=== PATIENT | female | born 1950 | race Caucasian/White ===

== ENCOUNTER 2020-11-18 21:56 | Inpatient (IN) ==
[2020-11-19] MEDS ORDERED: Naloxone 0.4 MG/ML INJ IVP PRN (01:08)
[2020-11-19] MEDS ORDERED: Phentolamine Mesylate 5 MG VIAL IJ ONE (01:11)
[2020-11-19] MEDS ORDERED: *HR* Dextrose 50 % in Water (Vial) 50 ML VIAL IVP PRN (01:30)
[2020-11-19] MEDS ORDERED: D5% in Water 1,000 ML IVC PRN (01:30)
[2020-11-19] MEDS ORDERED: Dextrose Gel 15 GM/37.5 ML TUBE PO PRN ×2 (01:30)
[2020-11-19] MEDS ORDERED: 0.9 % Sodium Chloride 500 ML ONE ×2 (01:43→01:56)
[2020-11-19] MEDS ORDERED: Vancomycin 1,750 MG/517.5 ML IV.SOLN IVPB ONE (02:00)
[2020-11-19 02:22] LABS: Basophils % 0.2 %; Eosinophils % 0.2 %; Hematocrit 25.9 % (35.3-44.9); Hemoglobin 7.8 g/dL (11.5-15.4); Immature Granulocytes % 0.9 % (0-4); Lymphocytes # 1.1 K/mcL (0.6-4.6); Lymphocytes % 9.9 %; Mean Corpuscular HGB Conc 30.1 g/dL (31.6-35.5); Mean Corpuscular Volume 106.1 fL (83.0-100.0); Mean Platelet Volume 9.7 fL (9.4-12.4); Monocytes # 0.6 K/mcL (0.0-1.3); Monocytes % 5.5 %; Neutrophils # 9.4 K/mcL (1.6-8.9); Nucleated Red Blood Cells 0.2 /100 WBC (0); Platelet Count 279 K/mcL (140-400); Red Blood Count 2.44 M/mcL (3.82-4.97); Red Cell Distribution Width 20.2 % (11.5-14.5); Segmented Neutrophils % 83.3 %; White Blood Count 11.3 K/mcL (4.3-11.1)
[2020-11-19] MEDS ORDERED: Norepinephrine 4 MG/254 ML IV.SOLN IVC SCH (02:30)
[2020-11-19 02:39] LABS: Albumin/Globulin Ratio 0.9 (1.1-2.2); Bilirubin,Total 0.4 mg/dL (0.3-1.0); Calcium 10.3 mg/dL (8.6-10.3); Globulin 3.5 g/dL (2.4-3.5); Magnesium 2.4 mg/dL (1.6-2.6); Potassium 3.8 mEq/L (3.5-5.1); Total Protein 6.5 g/dL (6.4-8.9)
[2020-11-19] MEDS ORDERED: Perflutren Lipid Microsphere 1.3 ML in 0.9 % Sodium Chloride 8.7 ML IVP PRN (02:52)
[2020-11-19] MEDS ORDERED: Ondansetron 4 MG/2 ML VIAL IVP PRN (03:15)
[2020-11-19] MEDS ORDERED: 0.9 % Sodium Chloride 1,000 ML IVC SCH (03:15)
[2020-11-19 03:25] LABS: ABG Base Excess 1 mEq/L (-2 to 3); ABG HCO3 25 mEq/L (21-27); ABG Oxygen Saturation 99 % (95-98); ABG PCO2 38 mmHg (35-45); ABG PH 7.43 pH Units (7.32-7.45); ABG PO2 147 mmHg (85-104); ABG TCO2 26 mEq/L (20-26); Blood Gas VT 500 cc
[2020-11-19] MEDS ORDERED: *HR* Heparin 5,000 UNIT/ML VIAL IVP ONE (04:51)
[2020-11-19] MEDS ORDERED: *HR* Heparin 5,000 UNIT/ML VIAL IVP PRN ×2 (04:51)
[2020-11-19] MEDS ORDERED: Heparin 25,000UNIT/250ML 1/2NS 25,000 UNIT/250 ML IV.SOLN IVC SCH (05:00)
[2020-11-19] MEDS: Heparin 25,000UNIT/250ML 1/2NS 25,000 UNIT/250 ML IV.SOLN IVC SCH (05:28)
[2020-11-19 05:44] LABS: Hemoglobin 7.9 g/dL (11.5-15.4); Mean Corpuscular HGB Conc 29.3 g/dL (31.6-35.5); Mean Corpuscular Hemoglobin 31.1 pg (28.0-33.3); Mean Corpuscular Volume 106.3 fL (83.0-100.0); Mean Platelet Volume 9.6 fL (9.4-12.4); Platelet Count 317 K/mcL (140-400); Red Blood Count 2.54 M/mcL (3.82-4.97); Red Cell Distribution Width 20.3 % (11.5-14.5); White Blood Count 14.8 K/mcL (4.3-11.1)
[2020-11-19 05:57] LABS: Heparin anti-factor XA UFH 0.69 IU/mL (0.30-0.70)
[2020-11-19 05:58] LABS: INR 1.2; Prothrombin Time 13.7 Seconds (9.4-12.1)
[2020-11-19 06:09] LABS: Troponin I 0.05 ng/mL (< 0.04)
[2020-11-19 06:17] LABS: Thyroid Stimulating Hormone 2.651 mcIU/mL (0.340-5.600)
[2020-11-19] MEDS: Piperacillin/Tazobactam 3.375 GM in 0.9 % Sodium Chloride Mini Bag 100 ML IVPB SCH ×2 (08:21→20:50)
[2020-11-19] MEDS ORDERED: Lidocaine -MPF 2% 5 ML VIAL ONE (09:49)
[2020-11-19] MEDS ORDERED: Azithromycin 500 MG in 0.9 % Sodium Chloride 250 ML IVPB SCH (10:00)
[2020-11-19] MEDS ORDERED: *HR* Midazolam HCl 2 MG/2 ML VIAL IVP ONE (10:25)
[2020-11-19] MEDS ORDERED: Lidocaine -MPF 2% 5 ML VIAL INFILT ONE (11:41)
[2020-11-19 13:36] LABS: Hepatitis B Surface Antibody < 3.10 mIU/mL
[2020-11-19 13:47] LABS: Hepatitis B Surface Antigen Nonreactive (Nonreactive)
[2020-11-19] MEDS ORDERED: *HR* Heparin 5,000 UNIT/ML VIAL ONE (15:35)
[2020-11-19 16:17] LABS: Creatine Kinase < 10 Units/L (30-223); Troponin I 0.04 ng/mL (< 0.04); Uric Acid 7.3 mg/dL (2.3-7.6); Vancomycin,Random 21 mcg/mL
[2020-11-19 22:12] LABS: Creatinine,Urine 141 mg/dL
[2020-11-20 04:01] LABS: ABG Base Excess 1 mEq/L (-2 to 3); ABG HCO3 25 mEq/L (21-27); ABG Oxygen Saturation 98 % (95-98); ABG PCO2 35 mmHg (35-45); ABG PH 7.46 pH Units (7.32-7.45); ABG PO2 101 mmHg (85-104); ABG TCO2 26 mEq/L (20-26); Blood Gas VT 500 cc
[2020-11-20 04:39] LABS: Hemoglobin 7.2 g/dL (11.5-15.4); Mean Corpuscular Hemoglobin 31.4 pg (28.0-33.3); Mean Corpuscular Volume 104.8 fL (83.0-100.0); Mean Platelet Volume 9.1 fL (9.4-12.4); Platelet Count 284 K/mcL (140-400); Red Blood Count 2.29 M/mcL (3.82-4.97); Red Cell Distribution Width 19.9 % (11.5-14.5); White Blood Count 11.9 K/mcL (4.3-11.1)
[2020-11-20] MEDS: Norepinephrine 4 MG/254 ML IV.SOLN IVC SCH (04:55)
[2020-11-20 05:02] LABS: Calcium 9.7 mg/dL (8.6-10.3); Potassium 3.5 mEq/L (3.5-5.1)
[2020-11-20] MEDS: Heparin 25,000UNIT/250ML 1/2NS 25,000 UNIT/250 ML IV.SOLN IVC SCH (05:47)
[2020-11-20] MEDS ORDERED: *HR* Heparin 10,000 UNIT/10 ML VIAL IV PRN (07:10)
[2020-11-20] MEDS ORDERED: 0.9 % Sodium Chloride 250 ML IVC PRN (07:10)
[2020-11-20] MEDS ORDERED: 0.9 % Sodium Chloride 1,000 ML PRIME SCH (07:15)
[2020-11-20] MEDS ORDERED: 0.9 % Sodium Chloride 1,000 ML ONE (07:25)
[2020-11-20 07:34] LABS: vanA/B Vancomycin-Resist Genes Not Detected (Not Detect)
[2020-11-20 07:35] LABS: Acinetobacter baumannii by PCR Not Detected (Not Detect); Candida albicans by PCR Not Detected (Not Detect); Candida glabrata by PCR Not Detected (Not Detect); Candida krusei by PCR Not Detected (Not Detect); Candida parapsilosis by PCR Not Detected (Not Detect); Candida tropicalis by PCR Not Detected (Not Detect); Enterobacter cloacae Cmplx PCR Not Detected (Not Detect); Enterobacteriaceae by PCR Not Detected (Not Detect); Enterococcus by PCR DETECTED (Not Detect); Escherichia coli by PCR Not Detected (Not Detect); Klebsiella oxytoca by PCR Not Detected (Not Detect); Klebsiella pneumoniae by PCR Not Detected (Not Detect); Proteus by PCR Not Detected (Not Detect); Pseudomonas aeruginosa by PCR Not Detected (Not Detect); Serratia marcescens by PCR Not Detected (Not Detect); Staphylococcus aureus by PCR Not Detected (Not Detect); Staphylococcus by PCR Not Detected (Not Detect); Streptococcus agalactiae(B)PCR Not Detected (Not Detect); Streptococcus by PCR Not Detected (Not Detect); Streptococcus pneumoniae PCR Not Detected (Not Detect); Streptococcus pyogenes (A) PCR Not Detected (Not Detect)
[2020-11-20] MEDS: Piperacillin/Tazobactam 3.375 GM in 0.9 % Sodium Chloride Mini Bag 100 ML IVPB SCH ×2 (11:23→12:36)
[2020-11-20] MEDS: Chlorhexidine Rinse 15 ML MOUTHWASH MM SCH ×2 (12:35→20:22)
[2020-11-20] MEDS: Nystatin POWDER 30 GM BOTTLE TP SCH ×2 (14:57→20:22)
[2020-11-20] MEDS: *HR* Heparin 5,000 UNIT/ML VIAL SQ SCH (17:05)
[2020-11-21 03:59] LABS: Hematocrit 24.4 % (35.3-44.9); Hemoglobin 7.1 g/dL (11.5-15.4); Mean Corpuscular HGB Conc 29.1 g/dL (31.6-35.5); Mean Corpuscular Hemoglobin 30.6 pg (28.0-33.3); Mean Corpuscular Volume 105.2 fL (83.0-100.0); Mean Platelet Volume 9.6 fL (9.4-12.4); Platelet Count 305 K/mcL (140-400); Red Blood Count 2.32 M/mcL (3.82-4.97); Red Cell Distribution Width 19.8 % (11.5-14.5); White Blood Count 10.2 K/mcL (4.3-11.1)
[2020-11-21 04:13] LABS: Calcium 9.2 mg/dL (8.6-10.3); Potassium 3.3 mEq/L (3.5-5.1)
[2020-11-21] MEDS: Norepinephrine 4 MG/254 ML IV.SOLN IVC SCH (04:38)
[2020-11-21] MEDS: *HR* Heparin 5,000 UNIT/ML VIAL SQ SCH ×2 (06:00→18:25)
[2020-11-21] MEDS: Chlorhexidine Rinse 15 ML MOUTHWASH MM SCH ×2 (09:00→21:00)
[2020-11-21] MEDS: Nystatin POWDER 30 GM BOTTLE TP SCH ×2 (09:56→21:00)
[2020-11-21] MEDS ORDERED: Potassium Chloride Elixir 20 MEQ/15 ML UDC GTUBE ONE (11:23)
[2020-11-21] MEDS: Piperacillin/Tazobactam 3.375 GM in 0.9 % Sodium Chloride Mini Bag 100 ML IVPB SCH ×2 (13:21)
[2020-11-21] MEDS ORDERED: 0.9 % Sodium Chloride 250 ML IVC PRN (16:06)
[2020-11-21] MEDS ORDERED: Ondansetron ODT 4 MG TAB.RAPDIS GTUBE PRN (16:06)
[2020-11-21] MEDS ORDERED: Bisacodyl 10 MG RECTAL SUPPOSITORY RC PRN (16:06)
[2020-11-21] MEDS ORDERED: D5% in Water 1,000 ML IVC PRN (16:06)
[2020-11-21] MEDS ORDERED: Dextrose Gel 15 GM/37.5 ML TUBE PO PRN ×2 (16:06)
[2020-11-21] MEDS ORDERED: 0.9 % Sodium Chloride 1,000 ML PRIME SCH (16:06)
[2020-11-21] MEDS ORDERED: Naloxone 0.4 MG/ML INJ IVP PRN (16:06)
[2020-11-21] MEDS ORDERED: Ondansetron 4 MG/2 ML VIAL IVP PRN (16:06)
[2020-11-21] MEDS ORDERED: *HR* Dextrose 50 % in Water (Vial) 50 ML VIAL IVP PRN (16:06)
[2020-11-21] MEDS: Docusate Oral Soln 100 MG/10 ML UDC GTUBE SCH (16:30)
[2020-11-22] MEDS: Piperacillin/Tazobactam 3.375 GM in 0.9 % Sodium Chloride Mini Bag 100 ML IVPB SCH ×2 (00:20→16:17)
[2020-11-22 02:56] LABS: Hematocrit 25.9 % (35.3-44.9); Hemoglobin 7.6 g/dL (11.5-15.4); Mean Corpuscular HGB Conc 29.3 g/dL (31.6-35.5); Mean Corpuscular Hemoglobin 32.1 pg (28.0-33.3); Mean Corpuscular Volume 109.3 fL (83.0-100.0); Mean Platelet Volume 9.3 fL (9.4-12.4); Platelet Count 301 K/mcL (140-400); Red Blood Count 2.37 M/mcL (3.82-4.97); Red Cell Distribution Width 19.6 % (11.5-14.5); White Blood Count 9.2 K/mcL (4.3-11.1)
[2020-11-22 03:17] LABS: Calcium 9.2 mg/dL (8.6-10.3)
[2020-11-22] MEDS: Docusate Oral Soln 100 MG/10 ML UDC GTUBE SCH ×2 (04:06→15:27)
[2020-11-22] MEDS: *HR* Heparin 5,000 UNIT/ML VIAL SQ SCH ×2 (05:17→18:23)
[2020-11-22] MEDS ORDERED: *HR* Heparin 10,000 UNIT/10 ML VIAL IV PRN ×2 (07:16)
[2020-11-22] MEDS ORDERED: 0.9 % Sodium Chloride 250 ML IVC PRN (07:16)
[2020-11-22] MEDS ORDERED: 0.9 % Sodium Chloride 1,000 ML PRIME SCH (07:30)
[2020-11-22] MEDS: Chlorhexidine Rinse 15 ML MOUTHWASH MM SCH ×2 (08:55→20:35)
[2020-11-22] MEDS: Famotidine 20 MG TABLET GTUBE SCH (08:55)
[2020-11-22] MEDS: Aspirin 81 MG TAB.CHEW GTUBE SCH (08:55)
[2020-11-22] MEDS ORDERED: Lidocaine/EPI 1:100k 1% 50 ML VIAL ONE (09:25)
[2020-11-22] MEDS ORDERED: Heparin 1,000 UNITS/500 mL 500 ML ONE (09:25)
[2020-11-22] MEDS ORDERED: *HR* Heparin 5,000 UNIT/ML VIAL ONE (09:50)
[2020-11-22] MEDS: Nystatin POWDER 30 GM BOTTLE TP SCH ×2 (11:46→16:54)
[2020-11-22] MEDS: Sennosides 8.6 MG TABLET PO SCH (18:23)
[2020-11-22] MEDS ORDERED: Ipratropium/Albuterol Neb 3 ML IH PRN (20:53)
[2020-11-23] MEDS: Docusate Oral Soln 100 MG/10 ML UDC GTUBE SCH ×2 (04:35→18:36)
[2020-11-23 04:46] LABS: Hemoglobin 7.5 g/dL (11.5-15.4); Mean Platelet Volume 9.6 fL (9.4-12.4); White Blood Count 8.8 K/mcL (4.3-11.1)
[2020-11-23 04:47] LABS: Hematocrit 26.3 % (35.3-44.9); Mean Corpuscular HGB Conc 28.5 g/dL (31.6-35.5); Mean Corpuscular Hemoglobin 31.1 pg (28.0-33.3); Mean Corpuscular Volume 109.1 fL (83.0-100.0); Platelet Count 350 K/mcL (140-400); Red Blood Count 2.41 M/mcL (3.82-4.97); Red Cell Distribution Width 19.1 % (11.5-14.5)
[2020-11-23 05:00] LABS: Magnesium 2.2 mg/dL (1.6-2.6); Phosphorous 3.3 mg/dL (2.7-4.5)
[2020-11-23 05:05] LABS: Albumin/Globulin Ratio 0.9 (1.1-2.2); Bilirubin,Total 0.4 mg/dL (0.3-1.0); Globulin 3.5 g/dL (2.4-3.5); Potassium 3.8 mEq/L (3.5-5.1); Total Protein 6.5 g/dL (6.4-8.9)
[2020-11-23] MEDS: *HR* Heparin 5,000 UNIT/ML VIAL SQ SCH (05:32)
[2020-11-23] MEDS: Aspirin 81 MG TAB.CHEW GTUBE SCH (08:16)
[2020-11-23] MEDS: Piperacillin/Tazobactam 3.375 GM in 0.9 % Sodium Chloride Mini Bag 100 ML IVPB SCH ×3 (08:16→23:44)
[2020-11-23] MEDS: Chlorhexidine Rinse 15 ML MOUTHWASH MM SCH ×2 (08:17→23:45)
[2020-11-23] MEDS: Famotidine 20 MG TABLET GTUBE SCH (08:17)
[2020-11-23] MEDS: Zinc Sulfate 220 MG CAPSULE GTUBE SCH (08:17)
[2020-11-23 17:11] LABS: Folate 12.9 ng/mL (3.0-16.0)
[2020-11-23] MEDS: Nystatin POWDER 30 GM BOTTLE TP SCH (18:35)
[2020-11-23] MEDS: Sennosides 8.6 MG TABLET PO SCH (18:36)
[2020-11-23 20:57] LABS: ABG Base Excess -2 mEq/L (-2 to 3); ABG HCO3 33 mEq/L (21-27); ABG Oxygen Saturation 100 % (95-98); ABG PCO2 147 mmHg (35-45); ABG PH 6.96 pH Units (7.32-7.45); ABG PO2 421 mmHg (85-104); ABG TCO2 38 mEq/L (20-26)
[2020-11-23 21:03] LABS: Basophils # 0.1 K/mcL (0.0-0.2); Basophils % 0.6 %; Eosinophils # 0.8 K/mcL (0.0-0.6); Eosinophils % 4.1 %; Hematocrit 32.4 % (35.3-44.9); Hemoglobin 8.9 g/dL (11.5-15.4); Immature Granulocytes % 4.1 % (0-4); Lymphocytes # 6.4 K/mcL (0.6-4.6); Lymphocytes % 33.6 %; Mean Corpuscular HGB Conc 27.5 g/dL (31.6-35.5); Mean Corpuscular Volume 112.9 fL (83.0-100.0); Mean Platelet Volume 9.5 fL (9.4-12.4); Monocytes % 5.4 %; Neutrophils # 9.9 K/mcL (1.6-8.9); Nucleated Red Blood Cells 0.4 /100 WBC (0); Platelet Count 464 K/mcL (140-400); Red Blood Count 2.87 M/mcL (3.82-4.97); Red Cell Distribution Width 19.2 % (11.5-14.5); Segmented Neutrophils % 52.2 %
[2020-11-23 21:04] LABS: White Blood Count 18.9 K/mcL (4.3-11.1)
[2020-11-23 21:16] LABS: VBG Ionized Calcium 1.45 mmol/L (1.15-1.35)
[2020-11-23 21:26] LABS: Hypochromasia Present (Not Present); Macrocytosis Present (Not Present); Reactive Lymphocytes Present (Not Present); Smudge Cells Present (Not Present)
[2020-11-23 21:27] LABS: Calcium 10.1 mg/dL (8.6-10.3); Magnesium 2.6 mg/dL (1.6-2.6); Potassium 4.2 mEq/L (3.5-5.1)
[2020-11-23 22:41] LABS: ABG Base Excess 3 mEq/L (-2 to 3); ABG HCO3 28 mEq/L (21-27); ABG Oxygen Saturation 99 % (95-98); ABG PCO2 46 mmHg (35-45); ABG PH 7.39 pH Units (7.32-7.45); ABG PO2 134 mmHg (85-104); ABG TCO2 30 mEq/L (20-26); Blood Gas Modality ASSIST CONTROL; Blood Gas VT 500 cc
[2020-11-23] MEDS: Apixaban 2.5 MG TABLET PO SCH (23:44)
[2020-11-24 04:35] LABS: ABG Base Excess 6 mEq/L (-2 to 3); ABG HCO3 29 mEq/L (21-27); ABG Oxygen Saturation 98 % (95-98); ABG PCO2 38 mmHg (35-45); ABG PO2 102 mmHg (85-104); ABG TCO2 30 mEq/L (20-26); Blood Gas Modality ASSIST CONTROL; Blood Gas VT 500 cc
[2020-11-24] MEDS: Nystatin POWDER 30 GM BOTTLE TP SCH ×4 (06:17→20:49)
[2020-11-24] MEDS: Docusate Oral Soln 100 MG/10 ML UDC GTUBE SCH ×2 (06:18→16:40)
[2020-11-24] MEDS: Famotidine 20 MG TABLET GTUBE SCH (08:19)
[2020-11-24] MEDS: Chlorhexidine Rinse 15 ML MOUTHWASH MM SCH ×2 (08:19→20:49)
[2020-11-24] MEDS: Aspirin 81 MG TAB.CHEW GTUBE SCH (08:19)
[2020-11-24] MEDS: Zinc Sulfate 220 MG CAPSULE GTUBE SCH (08:20)
[2020-11-24] MEDS: Apixaban 2.5 MG TABLET PO SCH ×2 (08:20→20:49)
[2020-11-24] MEDS: Piperacillin/Tazobactam 3.375 GM in 0.9 % Sodium Chloride Mini Bag 100 ML IVPB SCH ×2 (08:20→20:48)
[2020-11-24] MEDS ORDERED: Renal Vitamin 1 CAP CAPSULE PO SCH (09:00)
[2020-11-24 09:04] LABS: Basophils % 0.2 %; Eosinophils # 0.3 K/mcL (0.0-0.6); Eosinophils % 2.5 %; Hematocrit 24.2 % (35.3-44.9); Immature Granulocytes % 1.4 % (0-4); Lymphocytes # 1.6 K/mcL (0.6-4.6); Lymphocytes % 13.2 %; Mean Corpuscular HGB Conc 29.8 g/dL (31.6-35.5); Mean Corpuscular Hemoglobin 31.7 pg (28.0-33.3); Mean Platelet Volume 9.7 fL (9.4-12.4); Monocytes # 0.6 K/mcL (0.0-1.3); Monocytes % 5.1 %; Neutrophils # 9.2 K/mcL (1.6-8.9); Platelet Count 335 K/mcL (140-400); Red Blood Count 2.27 M/mcL (3.82-4.97); Red Cell Distribution Width 19.1 % (11.5-14.5); Segmented Neutrophils % 77.6 %; White Blood Count 11.8 K/mcL (4.3-11.1)
[2020-11-24 09:10] LABS: Hemoglobin 7.2 g/dL (11.5-15.4); Mean Corpuscular Volume 106.6 fL (83.0-100.0)
[2020-11-24 09:25] LABS: Albumin 3.1 g/dL (3.5-5.7); Albumin/Globulin Ratio 0.9 (1.1-2.2); Bilirubin,Total 0.4 mg/dL (0.3-1.0); Calcium 9.6 mg/dL (8.6-10.3); Globulin 3.4 g/dL (2.4-3.5); Potassium 3.9 mEq/L (3.5-5.1); Total Protein 6.5 g/dL (6.4-8.9)
[2020-11-24 09:27] LABS: Magnesium 2.3 mg/dL (1.6-2.6); Phosphorous 4.3 mg/dL (2.7-4.5)
[2020-11-24] MEDS ORDERED: Bisacodyl 10 MG RECTAL SUPPOSITORY RC PRN (12:03)
[2020-11-24] MEDS ORDERED: D5% in Water 1,000 ML IVC PRN (12:03)
[2020-11-24] MEDS ORDERED: Naloxone 0.4 MG/ML INJ IVP PRN (12:03)
[2020-11-24] MEDS ORDERED: Ondansetron 4 MG/2 ML VIAL IVP PRN (12:03)
[2020-11-24] MEDS ORDERED: *HR* Dextrose 50 % in Water (Vial) 50 ML VIAL IVP PRN (12:03)
[2020-11-24] MEDS ORDERED: 0.9 % Sodium Chloride 250 ML IVC PRN ×2 (12:03→13:32)
[2020-11-24] MEDS ORDERED: Dextrose Gel 15 GM/37.5 ML TUBE PO PRN ×2 (12:03)
[2020-11-24] MEDS ORDERED: *HR* Heparin 10,000 UNIT/10 ML VIAL IV PRN (13:32)
[2020-11-24] MEDS ORDERED: 0.9 % Sodium Chloride 1,000 ML PRIME SCH (13:45)
[2020-11-24] MEDS: Sennosides 8.6 MG TABLET PO SCH (16:40)
[2020-11-25] MEDS ORDERED: Acetaminophen IV 1,000 MG/100 ML BAG IVPB ONE (00:36)
[2020-11-25] MEDS ORDERED: Gabapentin 300 MG CAPSULE PO ONE (00:36)
[2020-11-25] MEDS: Ipratropium/Albuterol Neb 3 ML IH PRN ×2 (00:43→15:07)
[2020-11-25 03:20] LABS: Basophils % 0.3 %; Hemoglobin 7.3 g/dL (11.5-15.4); Mean Platelet Volume 9.5 fL (9.4-12.4); Red Cell Distribution Width 18.8 % (11.5-14.5)
[2020-11-25 03:21] LABS: Eosinophils # 0.3 K/mcL (0.0-0.6); Eosinophils % 3.5 %; Hematocrit 24.6 % (35.3-44.9); Immature Granulocytes % 0.6 % (0-4); Lymphocytes # 1.6 K/mcL (0.6-4.6); Lymphocytes % 16.8 %; Mean Corpuscular HGB Conc 29.7 g/dL (31.6-35.5); Mean Corpuscular Hemoglobin 31.5 pg (28.0-33.3); Monocytes # 0.5 K/mcL (0.0-1.3); Monocytes % 5.6 %; Platelet Count 312 K/mcL (140-400); Red Blood Count 2.32 M/mcL (3.82-4.97); Segmented Neutrophils % 73.2 %; White Blood Count 9.6 K/mcL (4.3-11.1)
[2020-11-25 03:35] LABS: Phosphorous 2.1 mg/dL (2.7-4.5)
[2020-11-25 03:42] LABS: Albumin 3.1 g/dL (3.5-5.7); Albumin/Globulin Ratio 0.9 (1.1-2.2); Bilirubin,Total 0.5 mg/dL (0.3-1.0); Calcium 8.5 mg/dL (8.6-10.3); Globulin 3.6 g/dL (2.4-3.5); Potassium 3.6 mEq/L (3.5-5.1); Total Protein 6.7 g/dL (6.4-8.9)
[2020-11-25] MEDS: Docusate Oral Soln 100 MG/10 ML UDC GTUBE SCH ×2 (04:03→16:22)
[2020-11-25] MEDS ORDERED: Famotidine 20 MG TABLET GTUBE SCH (09:00)
[2020-11-25] MEDS: Famotidine 20 MG TABLET GTUBE SCH (10:59)
[2020-11-25] MEDS: Nystatin POWDER 30 GM BOTTLE TP SCH ×2 (10:59→21:57)
[2020-11-25] MEDS: Apixaban 2.5 MG TABLET PO SCH ×2 (11:00→21:56)
[2020-11-25] MEDS: Zinc Sulfate 220 MG CAPSULE GTUBE SCH (11:00)
[2020-11-25] MEDS: Aspirin 81 MG TAB.CHEW GTUBE SCH (11:00)
[2020-11-25] MEDS: Chlorhexidine Rinse 15 ML MOUTHWASH MM SCH ×2 (11:00→21:56)
[2020-11-25] MEDS: Renal Vitamin 1 CAP CAPSULE PO SCH (11:00)
[2020-11-25] MEDS: Piperacillin/Tazobactam 3.375 GM in 0.9 % Sodium Chloride Mini Bag 100 ML IVPB SCH ×2 (11:01→21:56)
[2020-11-25] MEDS: Sennosides 8.6 MG TABLET PO SCH (16:22)
[2020-11-26] MEDS: Docusate Oral Soln 100 MG/10 ML UDC GTUBE SCH ×2 (05:31→17:30)
[2020-11-26] MEDS ORDERED: *HR* Heparin 10,000 UNIT/10 ML VIAL IV PRN (07:31)
[2020-11-26] MEDS ORDERED: 0.9 % Sodium Chloride 250 ML IVC PRN (07:31)
[2020-11-26] MEDS: Piperacillin/Tazobactam 3.375 GM in 0.9 % Sodium Chloride Mini Bag 100 ML IVPB SCH ×2 (07:46→21:24)
[2020-11-26] MEDS: Chlorhexidine Rinse 15 ML MOUTHWASH MM SCH ×2 (07:54→21:24)
[2020-11-26] MEDS: Zinc Sulfate 220 MG CAPSULE GTUBE SCH (07:55)
[2020-11-26] MEDS: Sennosides 8.6 MG TABLET PO SCH (07:55)
[2020-11-26] MEDS: Apixaban 2.5 MG TABLET PO SCH ×2 (07:55→21:25)
[2020-11-26] MEDS: Nystatin POWDER 30 GM BOTTLE TP SCH ×2 (07:56→21:25)
[2020-11-26] MEDS: Renal Vitamin 1 CAP CAPSULE PO SCH (07:56)
[2020-11-26] MEDS: Famotidine 20 MG TABLET GTUBE SCH (07:56)
[2020-11-26] MEDS: Aspirin 81 MG TAB.CHEW GTUBE SCH (07:57)
[2020-11-26] MEDS ORDERED: Isovue-370 500 ML BOTTLE IVP ONE (12:45)
[2020-11-26 13:00] LABS: ABG Base Excess 5 mEq/L (-2 to 3); ABG HCO3 31 mEq/L (21-27); ABG Oxygen Saturation 91 % (95-98); ABG PCO2 50 mmHg (35-45); ABG PO2 63 mmHg (85-104); ABG TCO2 32 mEq/L (20-26); Blood Gas Modality ASSIST CONTROL; Blood Gas VT 480 cc
[2020-11-26 13:41] LABS: Basophils # 0.1 K/mcL (0.0-0.2); Basophils % 0.3 %; Eosinophils # 0.4 K/mcL (0.0-0.6); Eosinophils % 2.4 %; Hematocrit 26.1 % (35.3-44.9); Hemoglobin 7.6 g/dL (11.5-15.4); INR 1.2; Immature Granulocytes % 1.7 % (0-4); Lymphocytes # 1.2 K/mcL (0.6-4.6); Lymphocytes % 6.9 %; Mean Corpuscular HGB Conc 29.1 g/dL (31.6-35.5); Mean Corpuscular Hemoglobin 31.7 pg (28.0-33.3); Mean Corpuscular Volume 108.8 fL (83.0-100.0); Mean Platelet Volume 9.5 fL (9.4-12.4); Monocytes # 0.6 K/mcL (0.0-1.3); Monocytes % 3.5 %; Neutrophils # 14.1 K/mcL (1.6-8.9); Platelet Count 338 K/mcL (140-400); Prothrombin Time 14.3 Seconds (9.4-12.1); Red Cell Distribution Width 18.7 % (11.5-14.5); Segmented Neutrophils % 85.2 %; White Blood Count 16.6 K/mcL (4.3-11.1)
[2020-11-26 14:38] LABS: Troponin I 0.08 ng/mL (< 0.04)
[2020-11-26 14:46] LABS: Albumin 3.1 g/dL (3.5-5.7); Albumin/Globulin Ratio 0.9 (1.1-2.2); Bilirubin,Total 0.4 mg/dL (0.3-1.0); Calcium 8.9 mg/dL (8.6-10.3); Globulin 3.4 g/dL (2.4-3.5); Magnesium 2.3 mg/dL (1.6-2.6); Phosphorous 5.1 mg/dL (2.7-4.5); Potassium 3.2 mEq/L (3.5-5.1); Total Protein 6.5 g/dL (6.4-8.9)
[2020-11-26] MEDS ORDERED: Norepinephrine 4 MG/254 ML 0.9% NaCL IVC ONE (16:46)
[2020-11-26] MEDS ORDERED: *HR* EPINEPHrine 1 MG/10 ML SYRINGE IVP ONE (16:46)
[2020-11-26] MEDS ORDERED: Potassium Chloride Elixir 20 MEQ/15 ML UDC GTUBE ONE (16:52)
[2020-11-27] MEDS: Docusate Oral Soln 100 MG/10 ML UDC GTUBE SCH ×2 (02:19→16:18)
[2020-11-27 05:52] LABS: Basophils % 0.2 %; Eosinophils # 0.3 K/mcL (0.0-0.6); Eosinophils % 2.8 %; Hematocrit 25.3 % (35.3-44.9); Hemoglobin 7.4 g/dL (11.5-15.4); Immature Granulocytes % 0.7 % (0-4); Lymphocytes # 1.3 K/mcL (0.6-4.6); Lymphocytes % 12.5 %; Mean Corpuscular HGB Conc 29.2 g/dL (31.6-35.5); Mean Corpuscular Hemoglobin 31.6 pg (28.0-33.3); Mean Corpuscular Volume 108.1 fL (83.0-100.0); Mean Platelet Volume 9.7 fL (9.4-12.4); Monocytes # 0.5 K/mcL (0.0-1.3); Monocytes % 4.8 %; Neutrophils # 8.1 K/mcL (1.6-8.9); Platelet Count 320 K/mcL (140-400); Red Blood Count 2.34 M/mcL (3.82-4.97); Red Cell Distribution Width 18.8 % (11.5-14.5); White Blood Count 10.2 K/mcL (4.3-11.1)
[2020-11-27 06:10] LABS: Calcium 9.4 mg/dL (8.6-10.3); Magnesium 2.4 mg/dL (1.6-2.6); Phosphorous 4.9 mg/dL (2.7-4.5); Potassium 3.8 mEq/L (3.5-5.1)
[2020-11-27] MEDS ORDERED: *HR* Heparin 10,000 UNIT/10 ML VIAL IV PRN (07:19)
[2020-11-27] MEDS ORDERED: 0.9 % Sodium Chloride 250 ML IVC PRN (07:19)
[2020-11-27] MEDS ORDERED: 0.9 % Sodium Chloride 1,000 ML PRIME SCH (07:30)
[2020-11-27] MEDS: Chlorhexidine Rinse 15 ML MOUTHWASH MM SCH ×2 (08:29→20:31)
[2020-11-27] MEDS: Apixaban 2.5 MG TABLET PO SCH ×2 (08:30→20:30)
[2020-11-27] MEDS: Piperacillin/Tazobactam 3.375 GM in 0.9 % Sodium Chloride Mini Bag 100 ML IVPB SCH ×2 (08:30→20:29)
[2020-11-27] MEDS: Aspirin 81 MG TAB.CHEW GTUBE SCH (08:30)
[2020-11-27] MEDS: Zinc Sulfate 220 MG CAPSULE GTUBE SCH (08:30)
[2020-11-27] MEDS: Famotidine 20 MG TABLET GTUBE SCH (08:30)
[2020-11-27] MEDS: Nystatin POWDER 30 GM BOTTLE TP SCH ×2 (08:42→20:31)
[2020-11-27 09:00] LABS: Troponin I 0.55 ng/mL (< 0.04)
[2020-11-27] MEDS ORDERED: Albumin 25% 25gram/100mL 25 GM/100 ML IV.SOLN IVPB PRN (09:51)
[2020-11-27] MEDS: Vitamin B Complex/Vit C/Vit E 1 EACH TABLET GTUBE SCH (12:18)
[2020-11-27] MEDS: *HR* HYDROcodone/Acet 5/325 mg TABLET PO PRN ×2 (15:18→20:30)
[2020-11-28] MEDS: Docusate Oral Soln 100 MG/10 ML UDC GTUBE SCH ×2 (00:09→17:43)
[2020-11-28 00:39] LABS: Adenovirus Not Detected (Not Detect); Bordetella Pertussis Not Detected (Not Detect); Chlamydophila pneumoniae Not Detected (Not Detect); Coronavirus 229E Not Detected (Not Detect); Coronavirus HKU1 Not Detected (Not Detect); Coronavirus NL63 Not Detected (Not Detect); Coronavirus OC43 Not Detected (Not Detect); Human Metapneumovirus Not Detected (Not Detect); Human Rhinovirus/Enterovirus Not Detected (Not Detect); Influenza A Subtype 2009 H1 Not Detected (Not Detect); Influenza B Not Detected (Not Detect); Mycoplasma pneumoniae Not Detected (Not Detect); Parainfluenza Virus 1 Not Detected (Not Detect); Parainfluenza Virus 2 Not Detected (Not Detect); Parainfluenza Virus 3 Not Detected (Not Detect); Parainfluenza Virus 4 Not Detected (Not Detect); Respiratory Syncytial Virus Not Detected (Not Detect); SARS-CoV-2 Not Detected (Not Detect)
[2020-11-28] MEDS: *HR* HYDROcodone/Acet 5/325 mg TABLET PO PRN ×4 (01:13→16:55)
[2020-11-28 04:55] LABS: Basophils % 0.4 %; Eosinophils # 0.6 K/mcL (0.0-0.6); Eosinophils % 5.4 %; Hematocrit 24.5 % (35.3-44.9); Hemoglobin 7.4 g/dL (11.5-15.4); Immature Granulocytes % 0.6 % (0-4); Lymphocytes # 1.5 K/mcL (0.6-4.6); Lymphocytes % 13.5 %; Mean Corpuscular HGB Conc 30.2 g/dL (31.6-35.5); Mean Corpuscular Hemoglobin 31.5 pg (28.0-33.3); Mean Corpuscular Volume 104.3 fL (83.0-100.0); Mean Platelet Volume 9.5 fL (9.4-12.4); Monocytes # 0.5 K/mcL (0.0-1.3); Monocytes % 4.7 %; Neutrophils # 8.4 K/mcL (1.6-8.9); Platelet Count 316 K/mcL (140-400); Red Blood Count 2.35 M/mcL (3.82-4.97); Red Cell Distribution Width 18.2 % (11.5-14.5); Segmented Neutrophils % 75.4 %; White Blood Count 11.2 K/mcL (4.3-11.1)
[2020-11-28 05:12] LABS: Calcium 8.7 mg/dL (8.6-10.3); Magnesium 1.9 mg/dL (1.6-2.6); Phosphorous 2.7 mg/dL (2.7-4.5); Potassium 3.2 mEq/L (3.5-5.1)
[2020-11-28] MEDS ORDERED: Potassium Chloride Elixir 20 MEQ/15 ML UDC GTUBE ONE (05:29)
[2020-11-28] MEDS ORDERED: *HR* Midazolam HCl 5 MG/5 ML VIAL IVP ONE (07:46)
[2020-11-28] MEDS ORDERED: *HR* FentaNYL (PF) 100 MCG/2 ML VIAL IVP ONE (07:46)
[2020-11-28] MEDS: Vitamin B Complex/Vit C/Vit E 1 EACH TABLET GTUBE SCH (09:30)
[2020-11-28] MEDS: Famotidine 20 MG TABLET GTUBE SCH (09:30)
[2020-11-28] MEDS: Chlorhexidine Rinse 15 ML MOUTHWASH MM SCH ×2 (09:30→21:23)
[2020-11-28] MEDS: Aspirin 81 MG TAB.CHEW GTUBE SCH (09:31)
[2020-11-28] MEDS: Apixaban 2.5 MG TABLET PO SCH (09:31)
[2020-11-28] MEDS: Zinc Sulfate 220 MG CAPSULE GTUBE SCH (09:31)
[2020-11-28] MEDS: Piperacillin/Tazobactam 3.375 GM in 0.9 % Sodium Chloride Mini Bag 100 ML IVPB SCH ×2 (09:31→21:24)
[2020-11-28] MEDS: Nystatin POWDER 30 GM BOTTLE TP SCH ×2 (09:33→21:25)
[2020-11-28] MEDS ORDERED: 0.9 % Sodium Chloride 250 ML IVC PRN ×2 (12:13→17:46)
[2020-11-28] MEDS ORDERED: *HR* Heparin 10,000 UNIT/10 ML VIAL IV PRN ×2 (12:13→17:46)
[2020-11-28] MEDS ORDERED: Dextrose Gel 15 GM/37.5 ML TUBE PO PRN ×2 (17:46)
[2020-11-28] MEDS ORDERED: *HR* Dextrose 50 % in Water (Vial) 50 ML VIAL IVP PRN (17:46)
[2020-11-28] MEDS ORDERED: Albumin 25% 25gram/100mL 25 GM/100 ML IV.SOLN IVPB PRN (17:46)
[2020-11-28] MEDS ORDERED: 0.9 % Sodium Chloride 1,000 ML PRIME SCH ×2 (17:46)
[2020-11-28] MEDS ORDERED: Naloxone 0.4 MG/ML INJ IVP PRN (17:46)
[2020-11-28] MEDS ORDERED: Simethicone 80 MG TAB.CHEW PO PRN (17:46)
[2020-11-28] MEDS ORDERED: D5% in Water 1,000 ML IVC PRN (17:46)
[2020-11-28] MEDS ORDERED: Ipratropium/Albuterol Neb 3 ML IH PRN (17:46)
[2020-11-28] MEDS ORDERED: Ondansetron 4 MG/2 ML VIAL IVP PRN (17:46)
[2020-11-28] MEDS ORDERED: Bisacodyl 10 MG RECTAL SUPPOSITORY RC PRN (17:46)
[2020-11-28 17:47] LABS: Appearance of Body Fluid Cloudy (Clear); Volume of Body Fluid 5 mL
[2020-11-28] MEDS ORDERED: HydrOXYzine SYP 10 MG/5 ML UDC GTUBE PRN (17:59)
[2020-11-28] MEDS ORDERED: Apixaban 2.5 MG TABLET PO SCH (21:00)
[2020-11-28] MEDS: Apixaban 2.5 MG TABLET GTUBE SCH (21:22)
[2020-11-28] MEDS ORDERED: *HR* HYDROcodone/Acet 5/325 mg TABLET PO PRN (23:19)
[2020-11-29 04:25] LABS: Basophils % 0.4 %; Eosinophils # 0.6 K/mcL (0.0-0.6); Eosinophils % 5.1 %; Hematocrit 26.6 % (35.3-44.9); Hemoglobin 7.8 g/dL (11.5-15.4); Immature Granulocytes % 0.6 % (0-4); Lymphocytes # 1.4 K/mcL (0.6-4.6); Lymphocytes % 13.1 %; Mean Corpuscular HGB Conc 29.3 g/dL (31.6-35.5); Mean Corpuscular Hemoglobin 31.7 pg (28.0-33.3); Mean Corpuscular Volume 108.1 fL (83.0-100.0); Mean Platelet Volume 9.4 fL (9.4-12.4); Monocytes # 0.5 K/mcL (0.0-1.3); Monocytes % 4.8 %; Neutrophils # 8.3 K/mcL (1.6-8.9); Platelet Count 330 K/mcL (140-400); Red Blood Count 2.46 M/mcL (3.82-4.97); Red Cell Distribution Width 17.9 % (11.5-14.5); White Blood Count 10.9 K/mcL (4.3-11.1)
[2020-11-29 04:46] LABS: Calcium 9.6 mg/dL (8.6-10.3); Potassium 4.3 mEq/L (3.5-5.1)
[2020-11-29] MEDS: Piperacillin/Tazobactam 3.375 GM in 0.9 % Sodium Chloride Mini Bag 100 ML IVPB SCH ×2 (08:33→20:58)
[2020-11-29] MEDS: Apixaban 2.5 MG TABLET GTUBE SCH ×2 (08:34→20:58)
[2020-11-29] MEDS: Nystatin POWDER 30 GM BOTTLE TP SCH (08:35)
[2020-11-29] MEDS: Chlorhexidine Rinse 15 ML MOUTHWASH MM SCH (08:35)
[2020-11-29] MEDS ORDERED: Vitamin B Complex/Vit C/Vit E 1 EACH TABLET GTUBE SCH (09:00)
[2020-11-29] MEDS ORDERED: Ascorbic Acid 500 MG TABLET GTUBE SCH (09:00)
[2020-11-29] MEDS ORDERED: Aspirin Enteric Coated 81 MG Tablet PO SCH (09:00)
[2020-11-29] MEDS ORDERED: Famotidine 20 MG TABLET GTUBE SCH (09:00)
[2020-11-29] MEDS ORDERED: Zinc Sulfate 220 MG CAPSULE GTUBE SCH (09:00)
[2020-11-29] MEDS ORDERED: Aspirin 81 MG TAB.CHEW GTUBE SCH (09:00)
[2020-11-29] MEDS ORDERED: Renal Vitamin 1 CAP CAPSULE PO SCH (09:00)
[2020-11-29] MEDS ORDERED: E-Z-PAQUE (BARIUM SULF) SUSP 1 BOTTLE PO ONE (16:10)
[2020-11-29] MEDS ORDERED: E-Z-HD (BARIUM SULF) SUSPENSION PO ONE (16:10)
[2020-11-30] MEDS: Nystatin POWDER 30 GM BOTTLE TP SCH ×3 (02:11→21:33)
[2020-11-30 06:28] LABS: Basophils # 0.1 K/mcL (0.0-0.2); Basophils % 0.6 %; Eosinophils # 0.4 K/mcL (0.0-0.6); Eosinophils % 3.9 %; Hematocrit 26.3 % (35.3-44.9); Hemoglobin 7.8 g/dL (11.5-15.4); Immature Granulocytes % 0.5 % (0-4); Lymphocytes # 1.3 K/mcL (0.6-4.6); Lymphocytes % 11.9 %; Mean Corpuscular HGB Conc 29.7 g/dL (31.6-35.5); Mean Corpuscular Hemoglobin 31.2 pg (28.0-33.3); Mean Corpuscular Volume 105.2 fL (83.0-100.0); Mean Platelet Volume 9.9 fL (9.4-12.4); Monocytes # 0.5 K/mcL (0.0-1.3); Monocytes % 4.7 %; Neutrophils # 8.7 K/mcL (1.6-8.9); Platelet Count 365 K/mcL (140-400); Red Cell Distribution Width 17.8 % (11.5-14.5); Segmented Neutrophils % 78.4 %; White Blood Count 11.2 K/mcL (4.3-11.1)
[2020-11-30 06:49] LABS: Calcium 9.3 mg/dL (8.6-10.3); Potassium 4.3 mEq/L (3.5-5.1)
[2020-11-30] MEDS ORDERED: 0.9 % Sodium Chloride 250 ML IVC PRN (07:10)
[2020-11-30] MEDS ORDERED: Albumin 25% 25gram/100mL 25 GM/100 ML IV.SOLN IVPB PRN (07:10)
[2020-11-30] MEDS ORDERED: Simethicone 80 MG TAB.CHEW PO PRN (07:16)
[2020-11-30] MEDS ORDERED: *HR* Heparin 10,000 UNIT/10 ML VIAL IV PRN (07:16)
[2020-11-30] MEDS ORDERED: *HR* Dextrose 50 % in Water (Vial) 50 ML VIAL IVP PRN (07:16)
[2020-11-30] MEDS ORDERED: Dextrose Gel 15 GM/37.5 ML TUBE PO PRN ×2 (07:16)
[2020-11-30] MEDS ORDERED: Naloxone 0.4 MG/ML INJ IVP PRN (07:16)
[2020-11-30] MEDS ORDERED: Bisacodyl 10 MG RECTAL SUPPOSITORY RC PRN (07:16)
[2020-11-30] MEDS ORDERED: Ipratropium/Albuterol Neb 3 ML IH PRN (07:16)
[2020-11-30] MEDS ORDERED: HydrOXYzine SYP 10 MG/5 ML UDC GTUBE PRN (07:16)
[2020-11-30] MEDS ORDERED: Ondansetron 4 MG/2 ML VIAL IVP PRN (07:16)
[2020-11-30] MEDS ORDERED: D5% in Water 1,000 ML IVC PRN (07:16)
[2020-11-30] MEDS: Piperacillin/Tazobactam 3.375 GM in 0.9 % Sodium Chloride Mini Bag 100 ML IVPB SCH ×2 (07:59→21:33)
[2020-11-30] MEDS ORDERED: Aspirin Enteric Coated 81 MG Tablet PO SCH (09:00)
[2020-11-30] MEDS: Zinc Sulfate 220 MG CAPSULE GTUBE SCH (09:55)
[2020-11-30] MEDS: Famotidine 20 MG TABLET GTUBE SCH (09:56)
[2020-11-30] MEDS: Apixaban 2.5 MG TABLET GTUBE SCH ×2 (09:56→21:28)
[2020-11-30] MEDS: *HR* HYDROcodone/Acet 5/325 mg TABLET PO PRN ×2 (09:56→21:32)
[2020-11-30] MEDS: Ascorbic Acid 500 MG TABLET GTUBE SCH (09:57)
[2020-11-30] MEDS ORDERED: *HR* Heparin 10,000 UNIT/10 ML VIAL ONE (14:04)
[2020-11-30] MEDS: Aspirin 81 MG TAB.CHEW PO SCH (15:03)
[2020-12-01 02:30] LABS: Basophils % 0.3 %; Eosinophils # 0.3 K/mcL (0.0-0.6); Eosinophils % 2.8 %; Hematocrit 25.8 % (35.3-44.9); Hemoglobin 7.6 g/dL (11.5-15.4); Immature Granulocytes % 0.3 % (0-4); Lymphocytes # 1.3 K/mcL (0.6-4.6); Lymphocytes % 11.3 %; Mean Corpuscular HGB Conc 29.5 g/dL (31.6-35.5); Mean Corpuscular Volume 105.3 fL (83.0-100.0); Mean Platelet Volume 9.8 fL (9.4-12.4); Monocytes # 0.5 K/mcL (0.0-1.3); Monocytes % 4.1 %; Neutrophils # 9.3 K/mcL (1.6-8.9); Platelet Count 379 K/mcL (140-400); Red Blood Count 2.45 M/mcL (3.82-4.97); Red Cell Distribution Width 17.5 % (11.5-14.5); Segmented Neutrophils % 81.2 %; White Blood Count 11.5 K/mcL (4.3-11.1)
[2020-12-01 02:49] LABS: Calcium 9.2 mg/dL (8.6-10.3); Magnesium 1.8 mg/dL (1.6-2.6); Potassium 4.4 mEq/L (3.5-5.1)
[2020-12-01] MEDS: Renal Vitamin 1 CAP CAPSULE PO SCH (08:50)
[2020-12-01] MEDS: Aspirin 81 MG TAB.CHEW PO SCH (08:50)
[2020-12-01] MEDS: Ascorbic Acid 500 MG TABLET GTUBE SCH (09:05)
[2020-12-01] MEDS: Apixaban 2.5 MG TABLET GTUBE SCH ×2 (09:05→20:50)
[2020-12-01] MEDS: Zinc Sulfate 220 MG CAPSULE GTUBE SCH (09:05)
[2020-12-01] MEDS: Famotidine 20 MG TABLET GTUBE SCH (09:06)
[2020-12-01] MEDS: Nystatin POWDER 30 GM BOTTLE TP SCH ×2 (09:07→20:51)
[2020-12-01] MEDS: Piperacillin/Tazobactam 3.375 GM in 0.9 % Sodium Chloride Mini Bag 100 ML IVPB SCH ×2 (09:07→20:51)
[2020-12-01] MEDS: *HR* HYDROcodone/Acet 5/325 mg TABLET PO PRN ×3 (09:38→22:53)
[2020-12-02 03:13] LABS: Influenza A PCR Body Fluid NOT DETECTED; Influenza B PCR Body Fluid NOT DETECTED; RVP Body Fluid Source BAL
[2020-12-02 05:42] LABS: Basophils # 0.1 K/mcL (0.0-0.2); Basophils % 0.5 %; Eosinophils # 0.4 K/mcL (0.0-0.6); Eosinophils % 3.3 %; Hematocrit 25.8 % (35.3-44.9); Hemoglobin 7.8 g/dL (11.5-15.4); Immature Granulocytes % 0.5 % (0-4); Lymphocytes # 1.8 K/mcL (0.6-4.6); Lymphocytes % 15.9 %; Mean Corpuscular HGB Conc 30.2 g/dL (31.6-35.5); Mean Corpuscular Hemoglobin 31.5 pg (28.0-33.3); Mean Platelet Volume 9.6 fL (9.4-12.4); Monocytes # 0.7 K/mcL (0.0-1.3); Monocytes % 5.9 %; Neutrophils # 8.2 K/mcL (1.6-8.9); Platelet Count 384 K/mcL (140-400); Red Blood Count 2.48 M/mcL (3.82-4.97); Red Cell Distribution Width 17.3 % (11.5-14.5); Segmented Neutrophils % 73.9 %
[2020-12-02 06:08] LABS: Calcium 9.7 mg/dL (8.6-10.3); Potassium 4.7 mEq/L (3.5-5.1)
[2020-12-02 06:25] LABS: RSV PCR Body Fluid NOT DETECTED
[2020-12-02] MEDS: Famotidine 20 MG TABLET GTUBE SCH (09:40)
[2020-12-02] MEDS: Ascorbic Acid 500 MG TABLET GTUBE SCH (09:40)
[2020-12-02] MEDS: *HR* HYDROcodone/Acet 5/325 mg TABLET PO PRN ×2 (09:40→21:06)
[2020-12-02] MEDS: Zinc Sulfate 220 MG CAPSULE GTUBE SCH (09:40)
[2020-12-02] MEDS: Aspirin 81 MG TAB.CHEW PO SCH (09:40)
[2020-12-02] MEDS: Piperacillin/Tazobactam 3.375 GM in 0.9 % Sodium Chloride Mini Bag 100 ML IVPB SCH ×2 (09:41→20:42)
[2020-12-02] MEDS: Apixaban 2.5 MG TABLET GTUBE SCH ×2 (09:41→20:41)
[2020-12-02] MEDS: Nystatin POWDER 30 GM BOTTLE TP SCH ×2 (09:43→20:42)
[2020-12-02 19:00] LABS: ABG Base Excess 2 mEq/L (-2 to 3); ABG HCO3 28 mEq/L (21-27); ABG Oxygen Saturation 96 % (95-98); ABG PCO2 51 mmHg (35-45); ABG PH 7.35 pH Units (7.32-7.45); ABG PO2 88 mmHg (85-104); ABG TCO2 30 mEq/L (20-26)
[2020-12-03] MEDS: *HR* HYDROcodone/Acet 5/325 mg TABLET PO PRN ×3 (03:21→20:15)
[2020-12-03 03:31] LABS: Basophils # 0.1 K/mcL (0.0-0.2); Basophils % 0.6 %; Eosinophils # 0.5 K/mcL (0.0-0.6); Eosinophils % 4.9 %; Hemoglobin 7.6 g/dL (11.5-15.4); Immature Granulocytes % 0.4 % (0-4); Lymphocytes # 1.6 K/mcL (0.6-4.6); Lymphocytes % 15.5 %; Mean Corpuscular HGB Conc 30.4 g/dL (31.6-35.5); Mean Corpuscular Hemoglobin 31.3 pg (28.0-33.3); Mean Corpuscular Volume 102.9 fL (83.0-100.0); Mean Platelet Volume 9.5 fL (9.4-12.4); Monocytes # 0.5 K/mcL (0.0-1.3); Monocytes % 5.2 %; Neutrophils # 7.7 K/mcL (1.6-8.9); Platelet Count 374 K/mcL (140-400); Red Blood Count 2.43 M/mcL (3.82-4.97); Red Cell Distribution Width 17.3 % (11.5-14.5); Segmented Neutrophils % 73.4 %; White Blood Count 10.4 K/mcL (4.3-11.1)
[2020-12-03 03:34] LABS: INR 1.2; Prothrombin Time 13.4 Seconds (9.4-12.1)
[2020-12-03 03:49] LABS: Calcium 9.7 mg/dL (8.6-10.3); Magnesium 2.2 mg/dL (1.6-2.6); Potassium 5.5 mEq/L (3.5-5.1)
[2020-12-03] MEDS ORDERED: 0.9 % Sodium Chloride 2,000 ML ONE (06:52)
[2020-12-03] MEDS ORDERED: 0.9 % Sodium Chloride 250 ML IVC PRN (07:13)
[2020-12-03] MEDS ORDERED: *HR* Heparin 10,000 UNIT/10 ML VIAL IV PRN (07:13)
[2020-12-03] MEDS ORDERED: 0.9 % Sodium Chloride 1,000 ML PRIME SCH (07:15)
[2020-12-03] MEDS: Piperacillin/Tazobactam 3.375 GM in 0.9 % Sodium Chloride Mini Bag 100 ML IVPB SCH ×2 (12:25→19:59)
[2020-12-03] MEDS: Nystatin POWDER 30 GM BOTTLE TP SCH ×2 (12:26→20:01)
[2020-12-03] MEDS: Aspirin 81 MG TAB.CHEW PO SCH (12:26)
[2020-12-03] MEDS: Famotidine 20 MG TABLET GTUBE SCH (12:26)
[2020-12-03] MEDS: Zinc Sulfate 220 MG CAPSULE GTUBE SCH (12:27)
[2020-12-03] MEDS: Ascorbic Acid 500 MG TABLET GTUBE SCH (12:27)
[2020-12-03] MEDS ORDERED: *HR* FentaNYL (PF) 100 MCG/2 ML VIAL IVP ONE (14:54)
[2020-12-03] MEDS ORDERED: *HR* FentaNYL (PF) 100 MCG/2 ML VIAL ONE (15:36)
[2020-12-03] MEDS ORDERED: 0.9 % Sodium Chloride 250 ML ONE (15:36)
[2020-12-03] MEDS ORDERED: Heparin 1,000 UNITS/500 mL 500 ML ONE (15:41)
[2020-12-03] MEDS ORDERED: Lidocaine/EPI 1:100k 1% 50 ML VIAL ONE (15:41)
[2020-12-03] MEDS ORDERED: *HR* Heparin 5,000 UNIT/ML VIAL ONE (16:03)
[2020-12-04 06:05] LABS: Basophils % 0.4 %; Eosinophils # 0.2 K/mcL (0.0-0.6); Eosinophils % 2.2 %; Hematocrit 25.7 % (35.3-44.9); Hemoglobin 7.8 g/dL (11.5-15.4); Immature Granulocytes % 0.3 % (0-4); Lymphocytes # 1.4 K/mcL (0.6-4.6); Lymphocytes % 14.7 %; Mean Corpuscular HGB Conc 30.4 g/dL (31.6-35.5); Mean Corpuscular Hemoglobin 31.6 pg (28.0-33.3); Mean Platelet Volume 9.7 fL (9.4-12.4); Monocytes # 0.6 K/mcL (0.0-1.3); Neutrophils # 7.1 K/mcL (1.6-8.9); Platelet Count 397 K/mcL (140-400); Red Blood Count 2.47 M/mcL (3.82-4.97); Red Cell Distribution Width 17.3 % (11.5-14.5); Segmented Neutrophils % 76.4 %; White Blood Count 9.3 K/mcL (4.3-11.1)
[2020-12-04 06:19] LABS: Phosphorous 3.3 mg/dL (2.7-4.5); Potassium 3.8 mEq/L (3.5-5.1)
[2020-12-04] MEDS: Piperacillin/Tazobactam 3.375 GM in 0.9 % Sodium Chloride Mini Bag 100 ML IVPB SCH ×2 (08:27→21:00)
[2020-12-04] MEDS: Famotidine 20 MG TABLET GTUBE SCH (08:28)
[2020-12-04] MEDS: Aspirin 81 MG TAB.CHEW PO SCH (08:28)
[2020-12-04] MEDS: Renal Vitamin 1 CAP CAPSULE PO SCH (08:29)
[2020-12-04] MEDS: Ascorbic Acid 500 MG TABLET GTUBE SCH (08:29)
[2020-12-04] MEDS: Zinc Sulfate 220 MG CAPSULE GTUBE SCH (08:29)
[2020-12-04] MEDS: Nystatin POWDER 30 GM BOTTLE TP SCH ×2 (08:30→21:46)
[2020-12-04] MEDS: Apixaban 5 MG TABLET GTUBE SCH (21:02)
[2020-12-05 01:35] LABS: Basophils % 0.4 %; Eosinophils # 0.3 K/mcL (0.0-0.6); Eosinophils % 3.8 %; Hemoglobin 8.4 g/dL (11.5-15.4); Immature Granulocytes % 0.2 % (0-4); Lymphocytes # 1.5 K/mcL (0.6-4.6); Lymphocytes % 18.1 %; Mean Corpuscular Hemoglobin 31.8 pg (28.0-33.3); Mean Corpuscular Volume 106.1 fL (83.0-100.0); Mean Platelet Volume 9.5 fL (9.4-12.4); Monocytes # 0.6 K/mcL (0.0-1.3); Monocytes % 7.8 %; Neutrophils # 5.7 K/mcL (1.6-8.9); Platelet Count 374 K/mcL (140-400); Red Blood Count 2.64 M/mcL (3.82-4.97); Segmented Neutrophils % 69.7 %; White Blood Count 8.2 K/mcL (4.3-11.1)
[2020-12-05 01:55] LABS: Magnesium 2.3 mg/dL (1.6-2.6); Potassium 4.4 mEq/L (3.5-5.1)
[2020-12-05] MEDS ORDERED: 0.9 % Sodium Chloride 250 ML IVC PRN (06:41)
[2020-12-05] MEDS: Apixaban 5 MG TABLET GTUBE SCH ×2 (08:45→20:46)
[2020-12-05] MEDS: Ascorbic Acid 500 MG TABLET GTUBE SCH (08:45)
[2020-12-05] MEDS: Zinc Sulfate 220 MG CAPSULE GTUBE SCH (08:45)
[2020-12-05] MEDS: Aspirin 81 MG TAB.CHEW PO SCH (08:45)
[2020-12-05] MEDS: Piperacillin/Tazobactam 3.375 GM in 0.9 % Sodium Chloride Mini Bag 100 ML IVPB SCH ×2 (08:46→20:46)
[2020-12-05] MEDS: Nystatin POWDER 30 GM BOTTLE TP SCH ×2 (08:54→20:47)
[2020-12-05] MEDS: Famotidine 20 MG TABLET GTUBE SCH (09:13)
[2020-12-05] MEDS: *HR* HYDROcodone/Acet 5/325 mg TABLET PO PRN (12:15)
[2020-12-06 03:08] LABS: Basophils # 0.1 K/mcL (0.0-0.2); Basophils % 0.7 %; Eosinophils # 0.3 K/mcL (0.0-0.6); Eosinophils % 4.4 %; Hematocrit 29.3 % (35.3-44.9); Hemoglobin 8.7 g/dL (11.5-15.4); Immature Granulocytes % 0.3 % (0-4); Lymphocytes # 1.1 K/mcL (0.6-4.6); Lymphocytes % 14.1 %; Mean Corpuscular HGB Conc 29.7 g/dL (31.6-35.5); Mean Corpuscular Volume 107.7 fL (83.0-100.0); Mean Platelet Volume 9.5 fL (9.4-12.4); Monocytes # 0.5 K/mcL (0.0-1.3); Monocytes % 6.5 %; Neutrophils # 5.6 K/mcL (1.6-8.9); Platelet Count 388 K/mcL (140-400); Red Blood Count 2.72 M/mcL (3.82-4.97); Red Cell Distribution Width 16.7 % (11.5-14.5); White Blood Count 7.6 K/mcL (4.3-11.1)
[2020-12-06 03:25] LABS: Calcium 9.1 mg/dL (8.6-10.3); Phosphorous 3.6 mg/dL (2.7-4.5)
[2020-12-06] MEDS ORDERED: Vancomycin 1 EACH in 0.9 % Sodium Chloride 250 ML IVPB PRN (08:00)
[2020-12-06] MEDS: Famotidine 20 MG TABLET GTUBE SCH (08:07)
[2020-12-06] MEDS: Ascorbic Acid 500 MG TABLET GTUBE SCH (08:07)
[2020-12-06] MEDS: Zinc Sulfate 220 MG CAPSULE GTUBE SCH (08:08)
[2020-12-06] MEDS: Apixaban 5 MG TABLET GTUBE SCH (08:08)
[2020-12-06] MEDS: Aspirin 81 MG TAB.CHEW PO SCH (08:08)
[2020-12-06] MEDS: Nystatin POWDER 30 GM BOTTLE TP SCH (08:09)
[2020-12-06] MEDS ORDERED: Vancomycin 1,750 MG/517.5 ML IV.SOLN IVPB ONE (09:00)
[2020-12-06 10:56] VITALS: BP 143/80
[2020-12-06 13:23] LABS: Influenza A PCR Negative (Negative); Influenza B PCR Negative (Negative); Resp. Syncytial Virus PCR Negative (Negative)
[2020-12-06 13:24] LABS: SARS-CoV-2 by PCR (In House) Negative (Negative)
[2020-12-10 08:29] LABS: HSV Source BAL
== END 2020-12-06 15:21 | DRG 280 ==
LOC: ICNU → SUATTDRO 11-19 03:48 → 2NNU 11-21 17:38 → ICNU 11-23 21:19 → 2NNU 11-24 19:54 → ICNU 11-26 12:19 → 2NNU 11-29 20:36
PROVIDERS: ADMIT Student in an Organized Health Care Education/Training Program; ATTEND Internal Medicine
PROC: ENDOBRF (2020-11-28 07:45)
PROC: IRPERMA (2020-12-03 13:00)

== ENCOUNTER 2020-12-09 12:48 | Inpatient (IN) ==
[2020-12-09] MEDS ORDERED: Naloxone 0.4 MG/ML INJ IVP PRN (15:33)
[2020-12-09] MEDS ORDERED: Ondansetron 4 MG/2 ML VIAL IVP PRN (15:33)
[2020-12-09 16:26] LABS: Basophils % 0.2 %; Eosinophils # 0.2 K/mcL (0.0-0.6); Eosinophils % 1.7 %; Hematocrit 27.3 % (35.3-44.9); Immature Granulocytes % 0.6 % (0-4); Lymphocytes # 0.8 K/mcL (0.6-4.6); Lymphocytes % 6.5 %; Mean Corpuscular HGB Conc 29.3 g/dL (31.6-35.5); Mean Corpuscular Hemoglobin 31.4 pg (28.0-33.3); Mean Corpuscular Volume 107.1 fL (83.0-100.0); Mean Platelet Volume 9.4 fL (9.4-12.4); Monocytes # 0.5 K/mcL (0.0-1.3); Monocytes % 3.8 %; Neutrophils # 10.3 K/mcL (1.6-8.9); Platelet Count 332 K/mcL (140-400); Red Blood Count 2.55 M/mcL (3.82-4.97); Red Cell Distribution Width 15.7 % (11.5-14.5); Segmented Neutrophils % 87.2 %
[2020-12-09 16:28] LABS: White Blood Count 11.8 K/mcL (4.3-11.1)
[2020-12-09 16:30] LABS: INR 1.2; Prothrombin Time 13.8 Seconds (9.4-12.1)
[2020-12-09] MEDS ORDERED: Ipratropium Neb 0.5 MG NEBULIZER IH PRN (16:36)
[2020-12-09 16:48] LABS: Albumin 3.3 g/dL (3.5-5.7); Albumin/Globulin Ratio 0.9 (1.1-2.2); Bilirubin,Total 0.3 mg/dL (0.3-1.0); Calcium 10.2 mg/dL (8.6-10.3); Globulin 3.7 g/dL (2.4-3.5); Magnesium 2.4 mg/dL (1.6-2.6); Phosphorous 6.3 mg/dL (2.7-4.5); Potassium 4.4 mEq/L (3.5-5.1)
[2020-12-09 16:53] LABS: Troponin I 0.04 ng/mL (< 0.04)
[2020-12-09 16:53] LABS: ABG Base Excess 6 mEq/L (-2 to 3); ABG HCO3 35 mEq/L (21-27); ABG Oxygen Saturation 94 % (95-98); ABG PCO2 81 mmHg (35-45); ABG PH 7.24 pH Units (7.32-7.45); ABG PO2 87 mmHg (85-104); ABG TCO2 37 mEq/L (20-26)
[2020-12-09] MEDS: Docusate Oral Soln 100 MG/10 ML UDC GTUBE SCH (18:15)
[2020-12-09] MEDS: Levalbuterol Neb 0.63 MG/3 ML IH SCH ×2 (18:20→21:35)
[2020-12-09] MEDS ORDERED: Vancomycin 500 MG in 0.9 % Sodium Chloride Mini Bag 100 ML IVPB ONE (20:35)
[2020-12-10] MEDS: Piperacillin/Tazobactam 3.375 GM in 0.9 % Sodium Chloride Mini Bag 100 ML IVPB SCH ×3 (00:39→21:51)
[2020-12-10] MEDS: Levalbuterol Neb 0.63 MG/3 ML IH SCH ×4 (03:44→22:08)
[2020-12-10] MEDS: Docusate Oral Soln 100 MG/10 ML UDC GTUBE SCH ×2 (03:52→15:43)
[2020-12-10 06:14] LABS: Basophils % 0.3 %; Eosinophils # 0.3 K/mcL (0.0-0.6); Eosinophils % 3.2 %; Hemoglobin 7.5 g/dL (11.5-15.4); Immature Granulocytes % 0.3 % (0-4); Lymphocytes % 11.1 %; Mean Corpuscular Hemoglobin 31.6 pg (28.0-33.3); Mean Corpuscular Volume 105.5 fL (83.0-100.0); Mean Platelet Volume 9.7 fL (9.4-12.4); Monocytes # 0.4 K/mcL (0.0-1.3); Monocytes % 4.5 %; Neutrophils # 7.6 K/mcL (1.6-8.9); Platelet Count 365 K/mcL (140-400); Red Blood Count 2.37 M/mcL (3.82-4.97); Segmented Neutrophils % 80.6 %; White Blood Count 9.4 K/mcL (4.3-11.1)
[2020-12-10 06:16] LABS: INR 1.2; Prothrombin Time 14.1 Seconds (9.4-12.1)
[2020-12-10 06:34] LABS: Calcium 10.1 mg/dL (8.6-10.3); Magnesium 2.4 mg/dL (1.6-2.6); Phosphorous 5.2 mg/dL (2.7-4.5); Potassium 4.1 mEq/L (3.5-5.1)
[2020-12-10 08:24] LABS: VBG HCO3 29 mEq/L (21-27); VBG PCO2 48 mmHg (41-51); VBG PH 7.39 pH Units (7.32-7.42); VBG PO2 170 mmHg (25-50)
[2020-12-10] MEDS ORDERED: Vancomycin 1 EACH in 0.9 % Sodium Chloride 250 ML IVPB SCH (09:00)
[2020-12-10] MEDS ORDERED: Albumin 25% 25gram/100mL 25 GM/100 ML IV.SOLN IVPB PRN (09:29)
[2020-12-10] MEDS ORDERED: *HR* Heparin 10,000 UNIT/10 ML VIAL IV PRN ×2 (09:29)
[2020-12-10] MEDS ORDERED: 0.9 % Sodium Chloride 250 ML IVC PRN (09:29)
[2020-12-10] MEDS ORDERED: 0.9 % Sodium Chloride 1,000 ML PRIME SCH (09:30)
[2020-12-10] MEDS: Famotidine 20 MG TABLET GTUBE SCH (09:34)
[2020-12-11] MEDS: Levalbuterol Neb 0.63 MG/3 ML IH SCH ×4 (03:20→22:08)
[2020-12-11] MEDS: Docusate Oral Soln 100 MG/10 ML UDC GTUBE SCH ×2 (05:16→17:01)
[2020-12-11 05:55] LABS: VBG HCO3 30 mEq/L (21-27); VBG PCO2 38 mmHg (41-51); VBG PH 7.51 pH Units (7.32-7.42); VBG PO2 204 mmHg (25-50)
[2020-12-11 06:06] LABS: Basophils # 0.1 K/mcL (0.0-0.2); Basophils % 0.6 %; Eosinophils # 0.3 K/mcL (0.0-0.6); Eosinophils % 3.2 %; Hematocrit 24.4 % (35.3-44.9); Hemoglobin 7.5 g/dL (11.5-15.4); Immature Granulocytes % 0.2 % (0-4); Lymphocytes # 1.3 K/mcL (0.6-4.6); Lymphocytes % 13.9 %; Mean Corpuscular HGB Conc 30.7 g/dL (31.6-35.5); Mean Corpuscular Hemoglobin 31.5 pg (28.0-33.3); Mean Corpuscular Volume 102.5 fL (83.0-100.0); Mean Platelet Volume 9.4 fL (9.4-12.4); Monocytes # 0.6 K/mcL (0.0-1.3); Monocytes % 6.9 %; Neutrophils # 6.8 K/mcL (1.6-8.9); Platelet Count 347 K/mcL (140-400); Red Blood Count 2.38 M/mcL (3.82-4.97); Red Cell Distribution Width 15.7 % (11.5-14.5); Segmented Neutrophils % 75.2 %; White Blood Count 9.1 K/mcL (4.3-11.1)
[2020-12-11 06:14] LABS: Calcium 8.6 mg/dL (8.6-10.3); Phosphorous 2.3 mg/dL (2.7-4.5); Potassium 3.4 mEq/L (3.5-5.1)
[2020-12-11] MEDS: Famotidine 20 MG TABLET GTUBE SCH (08:29)
[2020-12-11] MEDS ORDERED: Nystatin POWDER 30 GM BOTTLE TP SCH (09:00)
[2020-12-11] MEDS ORDERED: *HR* Rocuronium Bromide 50 MG/5 ML VIAL ONE ×2 (09:57→10:53)
[2020-12-11] MEDS ORDERED: Lidocaine -MPF 2% 2 ML VIAL ONE ×2 (09:57→10:53)
[2020-12-11] MEDS ORDERED: Ondansetron 4 MG/2 ML VIAL ONE ×2 (09:57→10:53)
[2020-12-11] MEDS ORDERED: Dexamethasone 4 MG/ML VIAL ONE ×2 (09:57→10:53)
[2020-12-11] MEDS ORDERED: *HR* Succinylcholine 200 MG/10 ML VIAL IVP ONE (09:57)
[2020-12-11] MEDS ORDERED: Sugammadex Sodium 200 MG/2 ML VIAL IV ONE ×2 (09:57→12:54)
[2020-12-11] MEDS ORDERED: *HR* FentaNYL (PF) 100 MCG/2 ML VIAL ONE ×3 (09:57→13:02)
[2020-12-11] MEDS ORDERED: *HR* Propofol 200 MG/20 ML VIAL IVP ONE ×2 (09:59→10:53)
[2020-12-11] MEDS ORDERED: *HR* Phenylephrine 10 MG/ML VIAL ONE (10:10)
[2020-12-11] MEDS ORDERED: Lidocaine -MPF 4% 5 ML AMPUL ONE (10:53)
[2020-12-11] MEDS ORDERED: *HR* Norepinephrine 4 MG/4 ML VIAL IVC ONE (11:06)
[2020-12-11] MEDS ORDERED: D5% in Water 250 ML ONE (11:06)
[2020-12-11] MEDS ORDERED: EPINEPHrine 1 MG/ML VIAL ONE (11:07)
[2020-12-11] MEDS ORDERED: *HR* PHENYLEPHRINE 1,000 MCG/10 ML SYRINGE IVP ONE (11:20)
[2020-12-11] MEDS ORDERED: Acetaminophen IV 1,000 MG/100 ML BAG IVPB ONE (12:56)
[2020-12-11] MEDS ORDERED: Ondansetron 4 MG/2 ML VIAL IVP PRN ×2 (13:39→14:42)
[2020-12-11] MEDS ORDERED: Ringers Solution, Lactated 1,000 ML IVC SCH (13:45)
[2020-12-11] MEDS: *HR* HYDROmorphone PF 0.5 MG/0.5 ML SYRINGE IVP PRN ×2 (13:46→13:56)
[2020-12-11] MEDS ORDERED: Vancomycin 1 EACH in 0.9 % Sodium Chloride 250 ML IVPB SCH (14:42)
[2020-12-11] MEDS ORDERED: Ipratropium Neb 0.5 MG NEBULIZER IH PRN (14:42)
[2020-12-11] MEDS ORDERED: Albumin 25% 25gram/100mL 25 GM/100 ML IV.SOLN IVPB PRN (14:42)
[2020-12-11] MEDS ORDERED: 0.9 % Sodium Chloride 1,000 ML PRIME SCH (14:42)
[2020-12-11] MEDS ORDERED: Naloxone 0.4 MG/ML INJ IVP PRN (14:42)
[2020-12-11] MEDS ORDERED: *HR* Heparin 10,000 UNIT/10 ML VIAL IV PRN (14:42)
[2020-12-11] MEDS ORDERED: 0.9 % Sodium Chloride 250 ML IVC PRN (14:42)
[2020-12-11] MEDS ORDERED: Bisacodyl 10 MG RECTAL SUPPOSITORY RC PRN (18:19)
[2020-12-11] MEDS ORDERED: NON-FORMULARY MEDICATION 1 EACH EACH (Ondansetron Hcl [Zofran] 4 MG) GTUBE PRN (18:19)
[2020-12-11] MEDS: Nystatin POWDER 30 GM BOTTLE TP SCH (20:37)
[2020-12-11] MEDS: Piperacillin/Tazobactam 3.375 GM in 0.9 % Sodium Chloride Mini Bag 100 ML IVPB SCH (22:36)
[2020-12-12 01:28] LABS: Basophils % 0.3 %; Hematocrit 29.1 % (35.3-44.9); Hemoglobin 8.3 g/dL (11.5-15.4); Immature Granulocytes % 0.5 % (0-4); Lymphocytes # 0.7 K/mcL (0.6-4.6); Lymphocytes % 6.5 %; Mean Corpuscular HGB Conc 28.5 g/dL (31.6-35.5); Mean Corpuscular Hemoglobin 30.9 pg (28.0-33.3); Mean Corpuscular Volume 108.2 fL (83.0-100.0); Mean Platelet Volume 9.3 fL (9.4-12.4); Monocytes # 0.7 K/mcL (0.0-1.3); Monocytes % 6.9 %; Neutrophils # 9.2 K/mcL (1.6-8.9); Platelet Count 341 K/mcL (140-400); Red Blood Count 2.69 M/mcL (3.82-4.97); Red Cell Distribution Width 15.8 % (11.5-14.5); Segmented Neutrophils % 85.8 %; White Blood Count 10.7 K/mcL (4.3-11.1)
[2020-12-12 01:29] LABS: VBG HCO3 27 mEq/L (21-27); VBG PCO2 34 mmHg (41-51); VBG PH 7.52 pH Units (7.32-7.42); VBG PO2 114 mmHg (25-50)
[2020-12-12 01:59] LABS: Calcium 8.3 mg/dL (8.6-10.3); Phosphorous 4.5 mg/dL (2.7-4.5); Potassium 4.4 mEq/L (3.5-5.1)
[2020-12-12] MEDS: *HR* OxyCODONE Oral Soln 5 MG/5 ML UD.LIQ GTUBE PRN ×2 (03:26→21:37)
[2020-12-12] MEDS: Levalbuterol Neb 0.63 MG/3 ML IH SCH ×4 (03:53→22:01)
[2020-12-12] MEDS: Docusate Oral Soln 100 MG/10 ML UDC GTUBE SCH ×2 (05:59→17:30)
[2020-12-12] MEDS: Famotidine 20 MG TABLET GTUBE SCH (07:44)
[2020-12-12] MEDS: Zinc Sulfate 220 MG CAPSULE GTUBE SCH (07:44)
[2020-12-12] MEDS: Iron Polysaccharide Complex 150 MG CAPSULE PO SCH (07:44)
[2020-12-12] MEDS: Ascorbic Acid 500 MG TABLET GTUBE SCH (07:45)
[2020-12-12] MEDS: Nystatin POWDER 30 GM BOTTLE TP SCH ×2 (07:45→22:25)
[2020-12-12] MEDS ORDERED: 0.9 % Sodium Chloride 250 ML IVC PRN (07:51)
[2020-12-12] MEDS ORDERED: *HR* Heparin 10,000 UNIT/10 ML VIAL IV PRN ×2 (07:51)
[2020-12-12] MEDS: Piperacillin/Tazobactam 3.375 GM in 0.9 % Sodium Chloride Mini Bag 100 ML IVPB SCH (13:33)
[2020-12-13] MEDS: Piperacillin/Tazobactam 3.375 GM in 0.9 % Sodium Chloride Mini Bag 100 ML IVPB SCH ×3 (00:26→23:37)
[2020-12-13] MEDS: Levalbuterol Neb 0.63 MG/3 ML IH SCH ×4 (03:58→22:53)
[2020-12-13 05:07] LABS: Basophils % 0.3 %; Eosinophils # 0.1 K/mcL (0.0-0.6); Eosinophils % 0.9 %; Hematocrit 22.6 % (35.3-44.9); Immature Granulocytes % 0.5 % (0-4); Lymphocytes % 9.5 %; Mean Corpuscular HGB Conc 29.6 g/dL (31.6-35.5); Mean Corpuscular Hemoglobin 30.7 pg (28.0-33.3); Mean Corpuscular Volume 103.7 fL (83.0-100.0); Mean Platelet Volume 9.5 fL (9.4-12.4); Monocytes # 0.8 K/mcL (0.0-1.3); Monocytes % 8.1 %; Neutrophils # 8.4 K/mcL (1.6-8.9); Platelet Count 326 K/mcL (140-400); Red Blood Count 2.18 M/mcL (3.82-4.97); Red Cell Distribution Width 15.7 % (11.5-14.5); Segmented Neutrophils % 80.7 %; White Blood Count 10.4 K/mcL (4.3-11.1)
[2020-12-13 05:11] LABS: Hemoglobin 6.7 g/dL (11.5-15.4)
[2020-12-13 05:37] LABS: Albumin 3.2 g/dL (3.5-5.7); Albumin/Globulin Ratio 0.9 (1.1-2.2); Bilirubin,Total 0.4 mg/dL (0.3-1.0); Calcium 8.2 mg/dL (8.6-10.3); Globulin 3.4 g/dL (2.4-3.5); Potassium 3.3 mEq/L (3.5-5.1); Total Protein 6.6 g/dL (6.4-8.9)
[2020-12-13] MEDS: *HR* OxyCODONE Oral Soln 5 MG/5 ML UD.LIQ GTUBE PRN ×2 (05:56→19:57)
[2020-12-13] MEDS: Docusate Oral Soln 100 MG/10 ML UDC GTUBE SCH ×2 (05:56→16:50)
[2020-12-13] MEDS ORDERED: 0.9 % Sodium Chloride 250 ML IVC SCH (07:30)
[2020-12-13] MEDS: Famotidine 20 MG TABLET GTUBE SCH (07:57)
[2020-12-13] MEDS: Zinc Sulfate 220 MG CAPSULE GTUBE SCH (07:57)
[2020-12-13] MEDS: Ascorbic Acid 500 MG TABLET GTUBE SCH (07:58)
[2020-12-13] MEDS: Nystatin POWDER 30 GM BOTTLE TP SCH ×2 (07:58→19:59)
[2020-12-13] MEDS: Iron Polysaccharide Complex 150 MG CAPSULE PO SCH (07:58)
[2020-12-13 09:23] LABS: Adenovirus Not Detected (Not Detect); Coronavirus 229E Not Detected (Not Detect); Coronavirus HKU1 Not Detected (Not Detect); Coronavirus NL63 Not Detected (Not Detect); Coronavirus OC43 Not Detected (Not Detect); Human Metapneumovirus Not Detected (Not Detect); Human Rhinovirus/Enterovirus Not Detected (Not Detect); SARS-CoV-2 Not Detected (Not Detect)
[2020-12-13 09:24] LABS: Bordetella Pertussis Not Detected (Not Detect); Chlamydophila pneumoniae Not Detected (Not Detect); Influenza A Subtype 2009 H1 Not Detected (Not Detect); Influenza B Not Detected (Not Detect); Mycoplasma pneumoniae Not Detected (Not Detect); Parainfluenza Virus 1 Not Detected (Not Detect); Parainfluenza Virus 2 Not Detected (Not Detect); Parainfluenza Virus 3 Not Detected (Not Detect); Parainfluenza Virus 4 Not Detected (Not Detect); Respiratory Syncytial Virus Not Detected (Not Detect)
[2020-12-13 10:49] LABS: Hematocrit 22.1 % (35.3-44.9); Hemoglobin 6.5 g/dL (11.5-15.4)
[2020-12-13 15:47] LABS: Hematocrit 24.1 % (35.3-44.9); Hemoglobin 7.4 g/dL (11.5-15.4)
[2020-12-13 22:06] LABS: Hematocrit 24.5 % (35.3-44.9); Hemoglobin 7.4 g/dL (11.5-15.4)
[2020-12-14 03:58] LABS: Basophils % 0.4 %; Eosinophils # 0.4 K/mcL (0.0-0.6); Eosinophils % 3.6 %; Hematocrit 24.8 % (35.3-44.9); Hemoglobin 7.4 g/dL (11.5-15.4); Immature Granulocytes % 0.8 % (0-4); Lymphocytes # 1.2 K/mcL (0.6-4.6); Lymphocytes % 10.6 %; Mean Corpuscular HGB Conc 29.8 g/dL (31.6-35.5); Mean Corpuscular Hemoglobin 30.2 pg (28.0-33.3); Mean Corpuscular Volume 101.2 fL (83.0-100.0); Mean Platelet Volume 9.2 fL (9.4-12.4); Neutrophils # 8.2 K/mcL (1.6-8.9); Platelet Count 273 K/mcL (140-400); Red Blood Count 2.45 M/mcL (3.82-4.97); Red Cell Distribution Width 17.6 % (11.5-14.5); Segmented Neutrophils % 75.6 %; White Blood Count 10.9 K/mcL (4.3-11.1)
[2020-12-14 04:12] LABS: Albumin 3.1 g/dL (3.5-5.7); Albumin/Globulin Ratio 0.8 (1.1-2.2); Bilirubin,Total 0.4 mg/dL (0.3-1.0); Calcium 8.5 mg/dL (8.6-10.3); Globulin 3.7 g/dL (2.4-3.5); Potassium 3.5 mEq/L (3.5-5.1); Total Protein 6.8 g/dL (6.4-8.9)
[2020-12-14] MEDS: Levalbuterol Neb 0.63 MG/3 ML IH SCH ×4 (04:22→23:05)
[2020-12-14] MEDS: Docusate Oral Soln 100 MG/10 ML UDC GTUBE SCH ×2 (05:30→16:57)
[2020-12-14] MEDS ORDERED: 0.9 % Sodium Chloride 250 ML IVC PRN (07:52)
[2020-12-14] MEDS ORDERED: *HR* Heparin 10,000 UNIT/10 ML VIAL IV PRN (07:52)
[2020-12-14] MEDS: Iron Polysaccharide Complex 150 MG CAPSULE PO SCH (13:22)
[2020-12-14] MEDS: Piperacillin/Tazobactam 3.375 GM in 0.9 % Sodium Chloride Mini Bag 100 ML IVPB SCH (13:22)
[2020-12-14] MEDS: Famotidine 20 MG TABLET GTUBE SCH (13:22)
[2020-12-14] MEDS: Zinc Sulfate 220 MG CAPSULE GTUBE SCH (13:22)
[2020-12-14] MEDS: Ascorbic Acid 500 MG TABLET GTUBE SCH (13:22)
[2020-12-14] MEDS: Nystatin POWDER 30 GM BOTTLE TP SCH ×3 (13:24→21:06)
[2020-12-14] MEDS ORDERED: Vancomycin 500 MG in 0.9 % Sodium Chloride Mini Bag 100 ML IVPB ONE (18:00)
[2020-12-14] MEDS: *HR* OxyCODONE Oral Soln 5 MG/5 ML UD.LIQ GTUBE PRN (21:05)
[2020-12-15] MEDS: Piperacillin/Tazobactam 3.375 GM in 0.9 % Sodium Chloride Mini Bag 100 ML IVPB SCH ×2 (00:11→11:43)
[2020-12-15] MEDS: Levalbuterol Neb 0.63 MG/3 ML IH SCH ×4 (03:47→22:47)
[2020-12-15 04:15] LABS: Basophils % 0.4 %; Eosinophils # 0.5 K/mcL (0.0-0.6); Eosinophils % 4.4 %; Hemoglobin 7.7 g/dL (11.5-15.4); Immature Granulocytes % 0.5 % (0-4); Lymphocytes % 9.4 %; Mean Corpuscular HGB Conc 30.8 g/dL (31.6-35.5); Mean Corpuscular Hemoglobin 31.4 pg (28.0-33.3); Mean Platelet Volume 9.6 fL (9.4-12.4); Monocytes # 0.7 K/mcL (0.0-1.3); Monocytes % 6.4 %; Neutrophils # 8.5 K/mcL (1.6-8.9); Platelet Count 306 K/mcL (140-400); Red Blood Count 2.45 M/mcL (3.82-4.97); Red Cell Distribution Width 16.8 % (11.5-14.5); Segmented Neutrophils % 78.9 %; White Blood Count 10.8 K/mcL (4.3-11.1)
[2020-12-15 04:30] LABS: Albumin/Globulin Ratio 0.8 (1.1-2.2); Bilirubin,Total 0.5 mg/dL (0.3-1.0); Calcium 8.7 mg/dL (8.6-10.3); Globulin 3.7 g/dL (2.4-3.5); Potassium 3.6 mEq/L (3.5-5.1); Total Protein 6.7 g/dL (6.4-8.9)
[2020-12-15] MEDS: Ascorbic Acid 500 MG TABLET GTUBE SCH (07:53)
[2020-12-15] MEDS: Zinc Sulfate 220 MG CAPSULE GTUBE SCH (07:53)
[2020-12-15] MEDS: Famotidine 20 MG TABLET GTUBE SCH (07:53)
[2020-12-15] MEDS: Iron Polysaccharide Complex 150 MG CAPSULE PO SCH (07:53)
[2020-12-15] MEDS: Docusate Oral Soln 100 MG/10 ML UDC GTUBE SCH ×2 (07:54→14:42)
[2020-12-15] MEDS: *HR* OxyCODONE Oral Soln 5 MG/5 ML UD.LIQ GTUBE PRN (08:01)
[2020-12-15] MEDS: Nystatin POWDER 30 GM BOTTLE TP SCH ×2 (11:43→20:05)
[2020-12-15] MEDS: Apixaban 2.5 MG TABLET GTUBE SCH ×2 (11:52→20:04)
[2020-12-15] MEDS ORDERED: Furosemide 40 MG/4 ML VIAL ONE (13:22)
[2020-12-15] MEDS ORDERED: Benzocaine/Menthol 56 GM AEROSOL SPRAY TP PRN (21:26)
[2020-12-16] MEDS: Levalbuterol Neb 0.63 MG/3 ML IH SCH ×4 (03:59→22:00)
[2020-12-16] MEDS: Docusate Oral Soln 100 MG/10 ML UDC GTUBE SCH ×2 (04:01→16:20)
[2020-12-16 05:18] LABS: Basophils # 0.1 K/mcL (0.0-0.2); Basophils % 0.4 %; Eosinophils # 0.8 K/mcL (0.0-0.6); Eosinophils % 5.6 %; Hematocrit 26.3 % (35.3-44.9); Hemoglobin 7.9 g/dL (11.5-15.4); Immature Granulocytes % 0.7 % (0-4); Lymphocytes # 1.3 K/mcL (0.6-4.6); Lymphocytes % 9.6 %; Mean Corpuscular Hemoglobin 30.4 pg (28.0-33.3); Mean Corpuscular Volume 101.2 fL (83.0-100.0); Mean Platelet Volume 9.5 fL (9.4-12.4); Monocytes # 0.7 K/mcL (0.0-1.3); Monocytes % 4.9 %; Neutrophils # 10.5 K/mcL (1.6-8.9); Platelet Count 339 K/mcL (140-400); Red Cell Distribution Width 16.3 % (11.5-14.5); Segmented Neutrophils % 78.8 %; White Blood Count 13.4 K/mcL (4.3-11.1)
[2020-12-16 05:34] LABS: Calcium 8.8 mg/dL (8.6-10.3); Potassium 4.1 mEq/L (3.5-5.1)
[2020-12-16] MEDS: Iron Polysaccharide Complex 150 MG CAPSULE PO SCH (08:14)
[2020-12-16] MEDS: Famotidine 20 MG TABLET GTUBE SCH (08:14)
[2020-12-16] MEDS: Apixaban 2.5 MG TABLET GTUBE SCH ×2 (08:15→21:11)
[2020-12-16] MEDS: Ascorbic Acid 500 MG TABLET GTUBE SCH (08:15)
[2020-12-16] MEDS: Zinc Sulfate 220 MG CAPSULE GTUBE SCH (08:16)
[2020-12-16] MEDS: Nystatin POWDER 30 GM BOTTLE TP SCH ×2 (08:19→21:26)
[2020-12-17] MEDS: Docusate Oral Soln 100 MG/10 ML UDC GTUBE SCH (03:13)
[2020-12-17] MEDS: Levalbuterol Neb 0.63 MG/3 ML IH SCH ×3 (03:36→15:40)
[2020-12-17 04:28] LABS: Basophils % 0.3 %; Eosinophils # 0.8 K/mcL (0.0-0.6); Eosinophils % 5.5 %; Hematocrit 26.7 % (35.3-44.9); Hemoglobin 8.3 g/dL (11.5-15.4); Immature Granulocytes % 0.9 % (0-4); Lymphocytes # 1.5 K/mcL (0.6-4.6); Lymphocytes % 10.1 %; Mean Corpuscular HGB Conc 31.1 g/dL (31.6-35.5); Mean Corpuscular Hemoglobin 31.2 pg (28.0-33.3); Mean Corpuscular Volume 100.4 fL (83.0-100.0); Mean Platelet Volume 9.3 fL (9.4-12.4); Monocytes # 0.7 K/mcL (0.0-1.3); Monocytes % 4.7 %; Neutrophils # 11.9 K/mcL (1.6-8.9); Platelet Count 353 K/mcL (140-400); Red Blood Count 2.66 M/mcL (3.82-4.97); Red Cell Distribution Width 16.1 % (11.5-14.5); Segmented Neutrophils % 78.5 %; White Blood Count 15.2 K/mcL (4.3-11.1)
[2020-12-17 04:47] LABS: Calcium 9.3 mg/dL (8.6-10.3); Potassium 4.3 mEq/L (3.5-5.1)
[2020-12-17] MEDS ORDERED: 0.9 % Sodium Chloride 250 ML IVC PRN (07:41)
[2020-12-17] MEDS ORDERED: *HR* Heparin 10,000 UNIT/10 ML VIAL IV PRN (07:41)
[2020-12-17] MEDS: Famotidine 20 MG TABLET GTUBE SCH (10:30)
[2020-12-17] MEDS: Apixaban 2.5 MG TABLET GTUBE SCH (10:30)
[2020-12-17] MEDS: Iron Polysaccharide Complex 150 MG CAPSULE PO SCH (10:30)
[2020-12-17] MEDS: Nystatin POWDER 30 GM BOTTLE TP SCH (10:30)
[2020-12-17] MEDS: Zinc Sulfate 220 MG CAPSULE GTUBE SCH (10:31)
[2020-12-17] MEDS: Ascorbic Acid 500 MG TABLET GTUBE SCH (10:31)
[2020-12-17 12:11] VITALS: BP 94/62
[2020-12-17 15:12] LABS: Adenovirus Not Detected (Not Detect); Bordetella Pertussis Not Detected (Not Detect); Chlamydophila pneumoniae Not Detected (Not Detect); Coronavirus 229E Not Detected (Not Detect); Coronavirus HKU1 Not Detected (Not Detect); Coronavirus NL63 Not Detected (Not Detect); Coronavirus OC43 Not Detected (Not Detect); Human Metapneumovirus Not Detected (Not Detect); Human Rhinovirus/Enterovirus Not Detected (Not Detect); Influenza A Subtype 2009 H1 Not Detected (Not Detect); Influenza B Not Detected (Not Detect); Mycoplasma pneumoniae Not Detected (Not Detect); Parainfluenza Virus 1 Not Detected (Not Detect); Parainfluenza Virus 2 Not Detected (Not Detect); Parainfluenza Virus 3 Not Detected (Not Detect); Parainfluenza Virus 4 Not Detected (Not Detect); Respiratory Syncytial Virus Not Detected (Not Detect); SARS-CoV-2 Not Detected (Not Detect)
== END 2020-12-17 17:05 | DRG 163 ==
LOC: 2NNU → SUATTDRO 15:13
PROVIDERS: ADMIT Internal Medicine; ATTEND Family Medicine

== ENCOUNTER 2021-05-10 10:07 | Inpatient (IN) ==
[2021-05-10] MEDS ORDERED: Naloxone 0.4 MG/ML INJ IVP PRN (12:08)
[2021-05-10] MEDS ORDERED: Acetaminophen 325 MG TABLET PO PRN (12:08)
[2021-05-10] MEDS ORDERED: Ondansetron 4 MG/2 ML VIAL IVP PRN (12:27)
[2021-05-10] MEDS ORDERED: Artificial Tears SOLN 15 ML BOTTLE BOTH EYES PRN (12:27)
[2021-05-10 13:37] LABS: Basophils % 0.3 %; Eosinophils % 0.1 %; Hematocrit 30.3 % (35.3-44.9); Immature Granulocytes % 1.2 % (0-4); Lymphocytes # 0.7 K/mcL (0.6-4.6); Lymphocytes % 6.2 %; Mean Corpuscular Hemoglobin 28.9 pg (28.0-33.3); Mean Corpuscular Volume 87.6 fL (83.0-100.0); Mean Platelet Volume 10.8 fL (9.4-12.4); Monocytes # 0.5 K/mcL (0.0-1.3); Monocytes % 4.8 %; Neutrophils # 9.4 K/mcL (1.6-8.9); Platelet Count 220 K/mcL (140-400); Red Blood Count 3.46 M/mcL (3.82-4.97); Red Cell Distribution Width 20.1 % (11.5-14.5); Segmented Neutrophils % 87.4 %; White Blood Count 10.7 K/mcL (4.3-11.1)
[2021-05-10 13:38] LABS: Hematocrit 31.1 % (35.3-44.9); Hemoglobin 9.7 g/dL (11.5-15.4); Mean Corpuscular HGB Conc 31.2 g/dL (31.6-35.5); Mean Corpuscular Hemoglobin 27.9 pg (28.0-33.3); Mean Corpuscular Volume 89.4 fL (83.0-100.0); Mean Platelet Volume 11.5 fL (9.4-12.4); Platelet Count 218 K/mcL (140-400); Red Blood Count 3.48 M/mcL (3.82-4.97); Red Cell Distribution Width 19.8 % (11.5-14.5); White Blood Count 10.8 K/mcL (4.3-11.1)
[2021-05-10 13:47] LABS: Albumin 2.7 g/dL (3.5-5.7); Albumin/Globulin Ratio 0.8 (1.1-2.2); Bilirubin,Direct 0.2 mg/dL (0.0-0.2); Bilirubin,Indirect 0.5 mg/dL (0.0-1.0); Bilirubin,Total 0.7 mg/dL (0.3-1.0); Calcium 8.9 mg/dL (8.6-10.3); Globulin 3.2 g/dL (2.4-3.5); Magnesium 1.7 mg/dL (1.6-2.6); Phosphorous 1.6 mg/dL (2.7-4.5); Potassium 3.1 mEq/L (3.5-5.1); Total Protein 5.9 g/dL (6.4-8.9)
[2021-05-10 13:48] LABS: INR 2.2; Prothrombin Time 24.8 Seconds (9.4-12.1)
[2021-05-10 13:50] LABS: Activated Partial Thrombo Time 38.1 Seconds (26.0-36.0)
[2021-05-10] MEDS ORDERED: Heparin 1,000 UNITS/500 mL 500 ML ONE (13:56)
[2021-05-10 14:16] LABS: Adenovirus Not Detected (Not Detect); Bordetella Pertussis Not Detected (Not Detect); Chlamydophila pneumoniae Not Detected (Not Detect); Coronavirus 229E Not Detected (Not Detect); Coronavirus HKU1 Not Detected (Not Detect); Coronavirus NL63 Not Detected (Not Detect); Coronavirus OC43 Not Detected (Not Detect); Human Metapneumovirus Not Detected (Not Detect); Human Rhinovirus/Enterovirus Not Detected (Not Detect); Influenza A Subtype 2009 H1 Not Detected (Not Detect); Influenza B Not Detected (Not Detect); Mycoplasma pneumoniae Not Detected (Not Detect); Parainfluenza Virus 1 Not Detected (Not Detect); Parainfluenza Virus 2 Not Detected (Not Detect); Parainfluenza Virus 3 Not Detected (Not Detect); Parainfluenza Virus 4 Not Detected (Not Detect); Respiratory Syncytial Virus Not Detected (Not Detect); SARS-CoV-2 Not Detected (Not Detect)
[2021-05-10] MEDS ORDERED: *HR* Heparin 5,000 UNIT/ML VIAL ONE (14:31)
[2021-05-10 16:06] LABS: ABG Base Excess 2 mEq/L (-2 to 3); ABG HCO3 26 mEq/L (21-27); ABG Oxygen Saturation 95 % (95-98); ABG PCO2 38 mmHg (35-45); ABG PH 7.45 pH Units (7.32-7.45); ABG PO2 71 mmHg (85-104); ABG TCO2 27 mEq/L (20-26)
[2021-05-10] MEDS: Artificial Tears SOLN 15 ML BOTTLE BOTH EYES SCH ×3 (16:27→23:21)
[2021-05-10] MEDS: Piperacillin/Tazobactam 3.375 GM in 0.9 % Sodium Chloride Mini Bag 100 ML IVPB SCH ×2 (16:28→23:21)
[2021-05-10] MEDS ORDERED: Perflutren Lipid Microsphere 1.3 ML in 0.9 % Sodium Chloride 8.7 ML IVP PRN (17:03)
[2021-05-10 18:47] LABS: Hepatitis B Surface Antibody < 3.10 mIU/mL
[2021-05-10 18:57] LABS: Hepatitis B Surface Antigen Nonreactive (Nonreactive)
[2021-05-10] MEDS: Chlorhexidine Rinse 15 ML MOUTHWASH MM SCH (20:35)
[2021-05-10] MEDS ORDERED: Phenylephrine 10 MG in 0.9 % Sodium Chloride 250 ML IVC SCH (23:45)
[2021-05-11] MEDS ORDERED: 0.9 % Sodium Chloride 1,000 ML PRIME SCH (00:01)
[2021-05-11] MEDS ORDERED: 0.9 % Sodium Chloride 250 ML IVC PRN (00:01)
[2021-05-11] MEDS ORDERED: *HR* Heparin 10,000 UNIT/10 ML VIAL IV PRN (00:01)
[2021-05-11] MEDS: Phenylephrine 50 MG in 0.9 % Sodium Chloride 250 ML IVC SCH ×2 (02:26→16:00)
[2021-05-11] MEDS: Artificial Tears SOLN 15 ML BOTTLE BOTH EYES SCH (03:09)
[2021-05-11 03:39] LABS: Basophils % 0.2 %; Eosinophils % 0.1 %; Hematocrit 26.9 % (35.3-44.9); Hemoglobin 8.8 g/dL (11.5-15.4); Immature Granulocytes % 2.2 % (0-4); Lymphocytes # 1.3 K/mcL (0.6-4.6); Lymphocytes % 9.4 %; Mean Corpuscular HGB Conc 32.7 g/dL (31.6-35.5); Mean Corpuscular Hemoglobin 28.6 pg (28.0-33.3); Mean Corpuscular Volume 87.3 fL (83.0-100.0); Monocytes # 1.2 K/mcL (0.0-1.3); Monocytes % 8.5 %; Platelet Count 243 K/mcL (140-400); Red Blood Count 3.08 M/mcL (3.82-4.97); Segmented Neutrophils % 79.6 %; White Blood Count 13.8 K/mcL (4.3-11.1)
[2021-05-11 03:56] LABS: BUN/Creatinine Ratio 16 (6-26); Blood Urea Nitrogen 36 mg/dL (8-23); Calcium 8.5 mg/dL (8.6-10.3); Carbon Dioxide 23 mEq/L (23-29); Chloride 104 mEq/L (98-107); Glucose 138 mg/dL (70-105); Osmolality,Calculated 297 (280-300); Potassium 3.3 mEq/L (3.5-5.1); Sodium 138 mEq/L (136-145); eGFR For African Americans 26 (> 60); eGFR For Non-African Americans 21 (> 60)
[2021-05-11 05:55] LABS: Ferritin 199 ng/mL (10-120); Iron < 10 mcg/dL (50-170); Transferrin 139 mg/dL (203-362)
[2021-05-11 06:24] LABS: Folate > 22.3 ng/mL (3.0-16.0); Vitamin B12 547 pg/mL (250-1100)
[2021-05-11 08:16] LABS: Acinetobacter baumannii by PCR Not Detected (Not Detect); Candida albicans by PCR Not Detected (Not Detect); Candida glabrata by PCR Not Detected (Not Detect); Candida krusei by PCR Not Detected (Not Detect); Candida parapsilosis by PCR Not Detected (Not Detect); Candida tropicalis by PCR Not Detected (Not Detect); Enterobacter cloacae Cmplx PCR Not Detected (Not Detect); Enterobacteriaceae by PCR Not Detected (Not Detect); Enterococcus by PCR Not Detected (Not Detect); Escherichia coli by PCR Not Detected (Not Detect); Klebsiella oxytoca by PCR Not Detected (Not Detect); Klebsiella pneumoniae by PCR Not Detected (Not Detect); Proteus by PCR Not Detected (Not Detect); Pseudomonas aeruginosa by PCR Not Detected (Not Detect); Serratia marcescens by PCR Not Detected (Not Detect); Staphylococcus aureus by PCR DETECTED (Not Detect); Streptococcus agalactiae(B)PCR Not Detected (Not Detect); Streptococcus by PCR Not Detected (Not Detect); Streptococcus pneumoniae PCR Not Detected (Not Detect); Streptococcus pyogenes (A) PCR Not Detected (Not Detect); mecA Methicillin-Resist Gene DETECTED (Not Detect)
[2021-05-11] MEDS: Chlorhexidine Rinse 15 ML MOUTHWASH MM SCH ×2 (08:43→19:38)
[2021-05-11] MEDS: Piperacillin/Tazobactam 3.375 GM in 0.9 % Sodium Chloride Mini Bag 100 ML IVPB SCH ×3 (08:43→23:14)
[2021-05-11] MEDS: Renal Vitamin 1 CAP CAPSULE PO SCH (08:44)
[2021-05-11] MEDS ORDERED: Albumin 25% 25gram/100mL 25 GM/100 ML IV.SOLN ONE (10:34)
[2021-05-11] MEDS ORDERED: Albumin 25% 25gram/100mL 25 GM/100 ML IV.SOLN IVPB ONE (11:00)
[2021-05-11] MEDS ORDERED: SODIUM BICARBONATE 650 MG GTUBE PRN (17:06)
[2021-05-11] MEDS ORDERED: Bisacodyl 10 MG RECTAL SUPPOSITORY RC PRN (17:06)
[2021-05-11] MEDS ORDERED: *HR* Heparin 5,000 UNIT/ML VIAL IVP PRN ×2 (17:08)
[2021-05-11] MEDS ORDERED: Potassium Chloride Elixir 20 MEQ/15 ML UDC GTUBE ONE (17:10)
[2021-05-11 17:46] LABS: Hemoglobin 7.6 g/dL (11.5-15.4); Mean Corpuscular HGB Conc 34.5 g/dL (31.6-35.5); Mean Corpuscular Hemoglobin 29.6 pg (28.0-33.3); Mean Corpuscular Volume 85.6 fL (83.0-100.0); Platelet Count 239 K/mcL (140-400); Red Blood Count 2.57 M/mcL (3.82-4.97); Red Cell Distribution Width 19.7 % (11.5-14.5); White Blood Count 9.7 K/mcL (4.3-11.1)
[2021-05-11 17:53] LABS: INR 1.6; Prothrombin Time 18.7 Seconds (9.4-12.1)
[2021-05-11 17:55] LABS: Activated Partial Thrombo Time 27.7 Seconds (26.0-36.0)
[2021-05-11 17:58] LABS: Heparin anti-factor XA UFH 1.75 IU/mL (0.30-0.70)
[2021-05-11] MEDS: Heparin 25,000UNIT/250ML 1/2NS 25,000 UNIT/250 ML IV.SOLN IVC SCH (18:05)
[2021-05-12 03:49] LABS: Basophils % 0.2 %; Eosinophils # 0.2 K/mcL (0.0-0.6); Eosinophils % 1.4 %; Hematocrit 23.3 % (35.3-44.9); Hemoglobin 7.7 g/dL (11.5-15.4); Immature Granulocytes % 2.3 % (0-4); Lymphocytes # 1.3 K/mcL (0.6-4.6); Lymphocytes % 11.5 %; Mean Corpuscular Hemoglobin 28.6 pg (28.0-33.3); Mean Corpuscular Volume 86.6 fL (83.0-100.0); Mean Platelet Volume 11.3 fL (9.4-12.4); Monocytes % 9.1 %; Neutrophils # 8.4 K/mcL (1.6-8.9); Platelet Count 267 K/mcL (140-400); Red Blood Count 2.69 M/mcL (3.82-4.97); Segmented Neutrophils % 75.5 %; White Blood Count 11.1 K/mcL (4.3-11.1)
[2021-05-12 04:10] LABS: Calcium 8.1 mg/dL (8.6-10.3); Potassium 3.4 mEq/L (3.5-5.1)
[2021-05-12] MEDS: Docusate Oral Soln 100 MG/10 ML UDC GTUBE SCH (07:35)
[2021-05-12] MEDS: *HR* Amiodarone 200 MG TABLET GTUBE SCH (07:35)
[2021-05-12] MEDS: Calcium Acetate 667 MG CAPSULE GTUBE SCH ×3 (07:35→17:46)
[2021-05-12] MEDS: Renal Vitamin 1 CAP CAPSULE PO SCH (07:35)
[2021-05-12] MEDS: Ascorbic Acid 500 MG TABLET GTUBE SCH (07:35)
[2021-05-12] MEDS: Piperacillin/Tazobactam 3.375 GM in 0.9 % Sodium Chloride Mini Bag 100 ML IVPB SCH ×2 (07:36→15:27)
[2021-05-12] MEDS: Chlorhexidine Rinse 15 ML MOUTHWASH MM SCH ×2 (07:36→19:54)
[2021-05-12] MEDS: Zinc Sulfate 220 MG CAPSULE GTUBE SCH (07:36)
[2021-05-12] MEDS ORDERED: Albuterol 2.5 MG/3 ML NEBULIZER IH PRN (15:24)
[2021-05-12] MEDS: Heparin 25,000UNIT/250ML 1/2NS 25,000 UNIT/250 ML IV.SOLN IVC SCH (15:28)
[2021-05-12] MEDS: Phenylephrine 50 MG in 0.9 % Sodium Chloride 250 ML IVC SCH (15:28)
[2021-05-12] MEDS: Ipratropium/Albuterol Neb 3 ML IH SCH ×3 (15:41→22:53)
[2021-05-12] MEDS: Mirtazapine 15 MG TABLET GTUBE SCH (19:55)
[2021-05-13 03:51] LABS: VBG Ionized Calcium 1.13 mmol/L (1.15-1.35)
[2021-05-13 03:55] LABS: Eosinophils # 0.2 K/mcL (0.0-0.6); Hematocrit 22.4 % (35.3-44.9); Hemoglobin 7.3 g/dL (11.5-15.4); Mean Corpuscular HGB Conc 32.6 g/dL (31.6-35.5); Mean Corpuscular Hemoglobin 28.3 pg (28.0-33.3); Mean Corpuscular Volume 86.8 fL (83.0-100.0); Mean Platelet Volume 10.9 fL (9.4-12.4); Nucleated Red Blood Cells 0.2 /100 WBC (0); Platelet Count 310 K/mcL (140-400); Red Blood Count 2.58 M/mcL (3.82-4.97); Red Cell Distribution Width 19.9 % (11.5-14.5); White Blood Count 9.6 K/mcL (4.3-11.1)
[2021-05-13] MEDS: Ipratropium/Albuterol Neb 3 ML IH SCH ×6 (04:05→23:16)
[2021-05-13 04:11] LABS: BUN/Creatinine Ratio 11 (6-26); Blood Urea Nitrogen 23 mg/dL (8-23); Calcium 8.5 mg/dL (8.6-10.3); Carbon Dioxide 25 mEq/L (23-29); Chloride 100 mEq/L (98-107); Glucose 111 mg/dL (70-105); Magnesium 1.6 mg/dL (1.6-2.6); Osmolality,Calculated 288 (280-300); Phosphorous < 1.0 mg/dL (2.7-4.5); Potassium 3.4 mEq/L (3.5-5.1); Sodium 137 mEq/L (136-145); eGFR For African Americans 28 (> 60); eGFR For Non-African Americans 23 (> 60)
[2021-05-13] MEDS ORDERED: Potassium Phosphate 44 MEQ in 0.9 % Sodium Chloride 250 ML IVPB ONE (04:13)
[2021-05-13 04:17] LABS: Anisocytosis 1+ (Not Present); Lymphocytes # 1.5 K/mcL (0.6-4.6); Monocytes # 0.4 K/mcL (0.0-1.3); Neutrophils # 7.5 K/mcL (1.6-8.9); Platelet Estimate Normal (Normal)
[2021-05-13 04:55] LABS: ABG Base Excess 2 mEq/L (-2 to 3); ABG HCO3 23 mEq/L (21-27); ABG Oxygen Saturation 65 % (95-98); ABG PCO2 23 mmHg (35-45); ABG PH 7.61 pH Units (7.32-7.45); ABG PO2 27 mmHg (85-104); ABG TCO2 24 mEq/L (20-26); Blood Gas VT 500 cc
[2021-05-13 05:58] LABS: ABG Base Excess 4 mEq/L (-2 to 3); ABG HCO3 25 mEq/L (21-27); ABG Oxygen Saturation 99 % (95-98); ABG PCO2 26 mmHg (35-45); ABG PO2 128 mmHg (85-104); ABG TCO2 26 mEq/L (20-26); Blood Gas VT 450 cc
[2021-05-13] MEDS ORDERED: Piperacillin/Tazobactam 3.375 GM in 0.9 % Sodium Chloride Mini Bag 100 ML IVPB SCH (06:00)
[2021-05-13] MEDS: Zinc Sulfate 220 MG CAPSULE GTUBE SCH (08:43)
[2021-05-13] MEDS: Chlorhexidine Rinse 15 ML MOUTHWASH MM SCH ×2 (08:44→20:05)
[2021-05-13] MEDS: Renal Vitamin 1 CAP CAPSULE PO SCH (08:44)
[2021-05-13] MEDS: Ascorbic Acid 500 MG TABLET GTUBE SCH (08:44)
[2021-05-13] MEDS: Docusate Oral Soln 100 MG/10 ML UDC GTUBE SCH (08:44)
[2021-05-13] MEDS: *HR* Amiodarone 200 MG TABLET GTUBE SCH (08:44)
[2021-05-13] MEDS: Calcium Acetate 667 MG CAPSULE GTUBE SCH (08:45)
[2021-05-13] MEDS ORDERED: Famotidine 20 MG TABLET GTUBE SCH (11:15)
[2021-05-13] MEDS ORDERED: Vancomycin 500 MG in 0.9 % Sodium Chloride Mini Bag 100 ML IVPB ONE (13:30)
[2021-05-13] MEDS: Heparin 25,000UNIT/250ML 1/2NS 25,000 UNIT/250 ML IV.SOLN IVC SCH (16:51)
[2021-05-13] MEDS: Mirtazapine 15 MG TABLET GTUBE SCH (20:05)
[2021-05-14] MEDS: Ipratropium/Albuterol Neb 3 ML IH SCH ×6 (03:10→23:26)
[2021-05-14 04:00] LABS: Basophils % 0.4 %; Eosinophils # 0.2 K/mcL (0.0-0.6); Eosinophils % 1.8 %; Hematocrit 21.1 % (35.3-44.9); Hemoglobin 6.9 g/dL (11.5-15.4); Immature Granulocytes % 6.2 % (0-4); Lymphocytes # 1.8 K/mcL (0.6-4.6); Lymphocytes % 17.3 %; Mean Corpuscular HGB Conc 32.7 g/dL (31.6-35.5); Mean Corpuscular Hemoglobin 28.2 pg (28.0-33.3); Mean Corpuscular Volume 86.1 fL (83.0-100.0); Mean Platelet Volume 10.8 fL (9.4-12.4); Monocytes # 0.7 K/mcL (0.0-1.3); Monocytes % 6.9 %; Platelet Count 326 K/mcL (140-400); Red Blood Count 2.45 M/mcL (3.82-4.97); Red Cell Distribution Width 19.9 % (11.5-14.5); Segmented Neutrophils % 67.4 %; White Blood Count 10.4 K/mcL (4.3-11.1)
[2021-05-14 04:09] LABS: Heparin anti-factor XA UFH 0.65 IU/mL (0.30-0.70)
[2021-05-14 04:12] LABS: Activated Partial Thrombo Time 67.1 Seconds (26.0-36.0)
[2021-05-14 04:20] LABS: Calcium 7.8 mg/dL (8.6-10.3); Magnesium 2.1 mg/dL (1.6-2.6); Potassium 3.9 mEq/L (3.5-5.1)
[2021-05-14 05:54] LABS: Hypochromasia Present (Not Present); Large Platelets Present (Not Present); Platelet Estimate Normal (Normal)
[2021-05-14 05:55] LABS: Anisocytosis 1+ (Not Present); Poikilocytosis 1+ (Not Present)
[2021-05-14] MEDS ORDERED: 0.9 % Sodium Chloride 250 ML IVC SCH (06:15)
[2021-05-14] MEDS: *HR* Amiodarone 200 MG TABLET GTUBE SCH (07:33)
[2021-05-14] MEDS: Ascorbic Acid 500 MG TABLET GTUBE SCH (07:33)
[2021-05-14] MEDS: Zinc Sulfate 220 MG CAPSULE GTUBE SCH (07:34)
[2021-05-14] MEDS: Chlorhexidine Rinse 15 ML MOUTHWASH MM SCH ×2 (07:34→20:06)
[2021-05-14] MEDS: Renal Vitamin 1 CAP CAPSULE PO SCH (07:35)
[2021-05-14] MEDS: Docusate Oral Soln 100 MG/10 ML UDC GTUBE SCH (07:35)
[2021-05-14 10:40] LABS: Phosphorous 3.7 mg/dL (2.7-4.5)
[2021-05-14] MEDS ORDERED: 0.9 % Sodium Chloride 250 ML ONE (13:27)
[2021-05-14] MEDS: Heparin 25,000UNIT/250ML 1/2NS 25,000 UNIT/250 ML IV.SOLN IVC SCH ×2 (14:12→20:06)
[2021-05-14] MEDS: Phenylephrine 50 MG in 0.9 % Sodium Chloride 250 ML IVC SCH (14:14)
[2021-05-14 16:33] LABS: Hematocrit 29.2 % (35.3-44.9)
[2021-05-14 16:34] LABS: Hemoglobin 9.4 g/dL (11.5-15.4)
[2021-05-14 16:38] LABS: INR 1.1; Prothrombin Time 12.7 Seconds (9.4-12.1)
[2021-05-14] MEDS ORDERED: SODIUM CHLORIDE/NAHCO3/KCL/PEG 4,000 ML SOLN.RECON PO ONE (17:00)
[2021-05-14] MEDS: Mirtazapine 15 MG TABLET GTUBE SCH (20:06)
[2021-05-14] MEDS ORDERED: Famotidine 20 MG TABLET GTUBE SCH (21:00)
[2021-05-15 03:18] LABS: Basophils # 0.1 K/mcL (0.0-0.2); Basophils % 0.7 %; Eosinophils % 2.5 %; Hematocrit 29.7 % (35.3-44.9); Hemoglobin 9.6 g/dL (11.5-15.4); Immature Granulocytes % 5.9 % (0-4); Lymphocytes # 2.2 K/mcL (0.6-4.6); Lymphocytes % 22.3 %; Mean Corpuscular HGB Conc 32.3 g/dL (31.6-35.5); Mean Corpuscular Volume 86.6 fL (83.0-100.0); Mean Platelet Volume 10.5 fL (9.4-12.4); Monocytes # 0.7 K/mcL (0.0-1.3); Monocytes % 6.8 %; Platelet Count 290 K/mcL (140-400); Red Blood Count 3.43 M/mcL (3.82-4.97); Red Cell Distribution Width 18.6 % (11.5-14.5); Segmented Neutrophils % 61.8 %; White Blood Count 9.8 K/mcL (4.3-11.1)
[2021-05-15] MEDS: Ipratropium/Albuterol Neb 3 ML IH SCH ×5 (03:30→19:59)
[2021-05-15 03:33] LABS: Eosinophils # 0.3 K/mcL (0.0-0.6); Neutrophils # 6.1 K/mcL (1.6-8.9)
[2021-05-15 03:40] LABS: Calcium 7.7 mg/dL (8.6-10.3); Potassium 3.9 mEq/L (3.5-5.1)
[2021-05-15 03:56] LABS: Anisocytosis 1+ (Not Present); Hypochromasia Present (Not Present)
[2021-05-15 03:57] LABS: Platelet Estimate Normal (Normal)
[2021-05-15] MEDS: Chlorhexidine Rinse 15 ML MOUTHWASH MM SCH ×2 (07:26→20:10)
[2021-05-15] MEDS ORDERED: *HR* Heparin 10,000 UNIT/10 ML VIAL IV PRN ×2 (08:12→17:11)
[2021-05-15] MEDS ORDERED: 0.9 % Sodium Chloride 250 ML IVC PRN ×2 (08:12→17:11)
[2021-05-15] MEDS ORDERED: 0.9 % Sodium Chloride 1,000 ML PRIME SCH ×2 (08:15→17:11)
[2021-05-15] MEDS ORDERED: Lidocaine -MPF 2% 5 ML VIAL ONE (12:11)
[2021-05-15] MEDS ORDERED: Ondansetron 4 MG/2 ML VIAL ONE (12:11)
[2021-05-15] MEDS ORDERED: Tetracaine/Benzocaine/Butamben 1 SPRAY AEROSOL MM ONE (12:23)
[2021-05-15] MEDS: Docusate Oral Soln 100 MG/10 ML UDC GTUBE SCH (16:34)
[2021-05-15] MEDS: Renal Vitamin 1 CAP CAPSULE PO SCH (16:35)
[2021-05-15] MEDS: Ascorbic Acid 500 MG TABLET GTUBE SCH (16:36)
[2021-05-15] MEDS: *HR* Amiodarone 200 MG TABLET GTUBE SCH (16:36)
[2021-05-15] MEDS: Phenylephrine 50 MG in 0.9 % Sodium Chloride 250 ML IVC SCH (16:36)
[2021-05-15] MEDS: Zinc Sulfate 220 MG CAPSULE GTUBE SCH (16:36)
[2021-05-15] MEDS ORDERED: *HR* Heparin 5,000 UNIT/ML VIAL IVP PRN ×2 (17:11)
[2021-05-15] MEDS ORDERED: 0.9 % Sodium Chloride 250 ML IVC SCH (17:11)
[2021-05-15] MEDS ORDERED: Ondansetron 4 MG/2 ML VIAL IVP PRN (17:11)
[2021-05-15] MEDS ORDERED: Albuterol 2.5 MG/3 ML NEBULIZER IH PRN (17:11)
[2021-05-15] MEDS ORDERED: Bisacodyl 10 MG RECTAL SUPPOSITORY RC PRN (17:11)
[2021-05-15] MEDS ORDERED: Acetaminophen 325 MG TABLET PO PRN (17:11)
[2021-05-15] MEDS ORDERED: Naloxone 0.4 MG/ML INJ IVP PRN (17:11)
[2021-05-15] MEDS: Mirtazapine 15 MG TABLET GTUBE SCH (20:10)
[2021-05-15] MEDS: Famotidine 20 MG TABLET GTUBE SCH (20:10)
[2021-05-15] MEDS: Heparin 25,000UNIT/250ML 1/2NS 25,000 UNIT/250 ML IV.SOLN IVC SCH (23:51)
[2021-05-16] MEDS: Ipratropium/Albuterol Neb 3 ML IH SCH ×6 (00:17→20:10)
[2021-05-16 03:56] LABS: Basophils % 0.3 %; Eosinophils % 0.1 %; Hematocrit 27.4 % (35.3-44.9); Hemoglobin 8.8 g/dL (11.5-15.4); Immature Granulocytes % 4.6 % (0-4); Lymphocytes # 1.1 K/mcL (0.6-4.6); Lymphocytes % 14.5 %; Mean Corpuscular HGB Conc 32.1 g/dL (31.6-35.5); Mean Corpuscular Hemoglobin 27.8 pg (28.0-33.3); Mean Corpuscular Volume 86.7 fL (83.0-100.0); Mean Platelet Volume 10.4 fL (9.4-12.4); Monocytes # 0.3 K/mcL (0.0-1.3); Monocytes % 3.5 %; Neutrophils # 5.8 K/mcL (1.6-8.9); Platelet Count 265 K/mcL (140-400); Red Blood Count 3.16 M/mcL (3.82-4.97); Red Cell Distribution Width 18.7 % (11.5-14.5); White Blood Count 7.5 K/mcL (4.3-11.1)
[2021-05-16 04:15] LABS: Calcium 7.4 mg/dL (8.6-10.3); Potassium 4.5 mEq/L (3.5-5.1)
[2021-05-16] MEDS ORDERED: Renal Vitamin 1 CAP CAPSULE PO SCH (09:00)
[2021-05-16] MEDS: Chlorhexidine Rinse 15 ML MOUTHWASH MM SCH ×2 (09:27→19:57)
[2021-05-16] MEDS: Zinc Sulfate 220 MG CAPSULE GTUBE SCH (09:28)
[2021-05-16] MEDS: Ascorbic Acid 500 MG TABLET GTUBE SCH (09:28)
[2021-05-16] MEDS: *HR* Amiodarone 200 MG TABLET GTUBE SCH (09:28)
[2021-05-16] MEDS: Docusate Oral Soln 100 MG/10 ML UDC GTUBE SCH (09:29)
[2021-05-16] MEDS: Famotidine 20 MG TABLET GTUBE SCH (19:57)
[2021-05-16] MEDS: Mirtazapine 15 MG TABLET GTUBE SCH (19:57)
[2021-05-17] MEDS: Ipratropium/Albuterol Neb 3 ML IH SCH ×6 (00:14→20:20)
[2021-05-17] MEDS: Heparin 25,000UNIT/250ML 1/2NS 25,000 UNIT/250 ML IV.SOLN IVC SCH (00:55)
[2021-05-17 05:34] LABS: Basophils % 0.3 %; Eosinophils # 0.2 K/mcL (0.0-0.6); Eosinophils % 1.7 %; Hematocrit 26.2 % (35.3-44.9); Hemoglobin 8.2 g/dL (11.5-15.4); Immature Granulocytes % 3.1 % (0-4); Lymphocytes # 2.6 K/mcL (0.6-4.6); Mean Corpuscular HGB Conc 31.3 g/dL (31.6-35.5); Mean Corpuscular Hemoglobin 27.8 pg (28.0-33.3); Mean Corpuscular Volume 88.8 fL (83.0-100.0); Mean Platelet Volume 10.3 fL (9.4-12.4); Monocytes # 0.5 K/mcL (0.0-1.3); Monocytes % 5.2 %; Neutrophils # 5.2 K/mcL (1.6-8.9); Platelet Count 299 K/mcL (140-400); Red Blood Count 2.95 M/mcL (3.82-4.97); Red Cell Distribution Width 19.1 % (11.5-14.5); Segmented Neutrophils % 59.7 %; White Blood Count 8.7 K/mcL (4.3-11.1)
[2021-05-17 05:50] LABS: Calcium 7.2 mg/dL (8.6-10.3); Potassium 4.2 mEq/L (3.5-5.1)
[2021-05-17] MEDS: *HR* Amiodarone 200 MG TABLET GTUBE SCH (08:40)
[2021-05-17] MEDS: Docusate Oral Soln 100 MG/10 ML UDC GTUBE SCH (08:40)
[2021-05-17] MEDS: Chlorhexidine Rinse 15 ML MOUTHWASH MM SCH ×2 (08:40→20:15)
[2021-05-17] MEDS: Ascorbic Acid 500 MG TABLET GTUBE SCH (08:40)
[2021-05-17] MEDS: Zinc Sulfate 220 MG CAPSULE GTUBE SCH (08:40)
[2021-05-17] MEDS: Renal Vitamin 1 CAP CAPSULE PO SCH (08:41)
[2021-05-17] MEDS: Famotidine 20 MG TABLET GTUBE SCH (20:16)
[2021-05-17] MEDS: Mirtazapine 15 MG TABLET GTUBE SCH (20:16)
[2021-05-18] MEDS: Ipratropium/Albuterol Neb 3 ML IH SCH ×6 (00:06→20:03)
[2021-05-18] MEDS: Heparin 25,000UNIT/250ML 1/2NS 25,000 UNIT/250 ML IV.SOLN IVC SCH (01:44)
[2021-05-18 04:37] LABS: Basophils % 0.2 %; Eosinophils # 0.2 K/mcL (0.0-0.6); Eosinophils % 1.8 %; Hematocrit 29.1 % (35.3-44.9); Hemoglobin 9.2 g/dL (11.5-15.4); Immature Granulocytes % 2.8 % (0-4); Lymphocytes # 2.6 K/mcL (0.6-4.6); Lymphocytes % 28.9 %; Mean Corpuscular HGB Conc 31.6 g/dL (31.6-35.5); Mean Corpuscular Hemoglobin 28.2 pg (28.0-33.3); Mean Corpuscular Volume 89.3 fL (83.0-100.0); Mean Platelet Volume 10.2 fL (9.4-12.4); Monocytes # 0.5 K/mcL (0.0-1.3); Monocytes % 5.5 %; Neutrophils # 5.5 K/mcL (1.6-8.9); Platelet Count 313 K/mcL (140-400); Red Blood Count 3.26 M/mcL (3.82-4.97); Red Cell Distribution Width 19.7 % (11.5-14.5); Segmented Neutrophils % 60.8 %
[2021-05-18 04:51] LABS: Calcium 7.5 mg/dL (8.6-10.3); Potassium 4.3 mEq/L (3.5-5.1)
[2021-05-18] MEDS ORDERED: *HR* Heparin 10,000 UNIT/10 ML VIAL IV PRN (07:09)
[2021-05-18] MEDS ORDERED: 0.9 % Sodium Chloride 250 ML IVC PRN (07:09)
[2021-05-18] MEDS ORDERED: 0.9 % Sodium Chloride 1,000 ML PRIME SCH (07:15)
[2021-05-18] MEDS: Renal Vitamin 1 CAP CAPSULE PO SCH (08:18)
[2021-05-18] MEDS: Ascorbic Acid 500 MG TABLET GTUBE SCH (08:18)
[2021-05-18] MEDS: *HR* Amiodarone 200 MG TABLET GTUBE SCH (08:19)
[2021-05-18] MEDS: Zinc Sulfate 220 MG CAPSULE GTUBE SCH (08:19)
[2021-05-18] MEDS: Chlorhexidine Rinse 15 ML MOUTHWASH MM SCH ×2 (08:19→19:56)
[2021-05-18] MEDS: Docusate Oral Soln 100 MG/10 ML UDC GTUBE SCH (08:19)
[2021-05-18] MEDS: Mirtazapine 15 MG TABLET GTUBE SCH (19:56)
[2021-05-18] MEDS: Famotidine 20 MG TABLET GTUBE SCH (19:56)
[2021-05-19] MEDS: Ipratropium/Albuterol Neb 3 ML IH SCH ×7 (00:21→23:12)
[2021-05-19] MEDS: Heparin 25,000UNIT/250ML 1/2NS 25,000 UNIT/250 ML IV.SOLN IVC SCH (02:58)
[2021-05-19 03:17] LABS: Basophils % 0.4 %; Eosinophils # 0.2 K/mcL (0.0-0.6); Eosinophils % 1.6 %; Hematocrit 26.5 % (35.3-44.9); Hemoglobin 8.3 g/dL (11.5-15.4); Immature Granulocytes % 1.5 % (0-4); Lymphocytes # 1.9 K/mcL (0.6-4.6); Lymphocytes % 20.7 %; Mean Corpuscular HGB Conc 31.3 g/dL (31.6-35.5); Mean Corpuscular Hemoglobin 28.2 pg (28.0-33.3); Mean Corpuscular Volume 90.1 fL (83.0-100.0); Mean Platelet Volume 10.4 fL (9.4-12.4); Monocytes # 0.4 K/mcL (0.0-1.3); Monocytes % 4.7 %; Neutrophils # 6.6 K/mcL (1.6-8.9); Platelet Count 262 K/mcL (140-400); Red Blood Count 2.94 M/mcL (3.82-4.97); Red Cell Distribution Width 19.6 % (11.5-14.5); Segmented Neutrophils % 71.1 %; White Blood Count 9.3 K/mcL (4.3-11.1)
[2021-05-19 03:31] LABS: Calcium 7.9 mg/dL (8.6-10.3); Potassium 4.2 mEq/L (3.5-5.1)
[2021-05-19] MEDS: Zinc Sulfate 220 MG CAPSULE GTUBE SCH (08:27)
[2021-05-19] MEDS: *HR* Amiodarone 200 MG TABLET GTUBE SCH (08:27)
[2021-05-19] MEDS: Docusate Oral Soln 100 MG/10 ML UDC GTUBE SCH (08:27)
[2021-05-19] MEDS: Chlorhexidine Rinse 15 ML MOUTHWASH MM SCH ×2 (08:27→20:26)
[2021-05-19] MEDS: Renal Vitamin 1 CAP CAPSULE PO SCH (08:27)
[2021-05-19] MEDS: Ascorbic Acid 500 MG TABLET GTUBE SCH (08:27)
[2021-05-19] MEDS ORDERED: GuaiFENesin Liq 200 MG/10 ML UDC GTUBE PRN (14:23)
[2021-05-19] MEDS: Mirtazapine 15 MG TABLET GTUBE SCH (20:26)
[2021-05-19] MEDS: Famotidine 20 MG TABLET GTUBE SCH (20:26)
[2021-05-20] MEDS: Heparin 25,000UNIT/250ML 1/2NS 25,000 UNIT/250 ML IV.SOLN IVC SCH ×4 (03:47→22:30)
[2021-05-20] MEDS: Ipratropium/Albuterol Neb 3 ML IH SCH ×6 (03:59→23:28)
[2021-05-20 04:08] LABS: Hematocrit 27.2 % (35.3-44.9); Hemoglobin 8.4 g/dL (11.5-15.4); Mean Corpuscular HGB Conc 30.9 g/dL (31.6-35.5); Mean Corpuscular Hemoglobin 28.2 pg (28.0-33.3); Mean Corpuscular Volume 91.3 fL (83.0-100.0); Platelet Count 249 K/mcL (140-400); Red Blood Count 2.98 M/mcL (3.82-4.97); Red Cell Distribution Width 19.6 % (11.5-14.5); White Blood Count 8.1 K/mcL (4.3-11.1)
[2021-05-20 04:30] LABS: Potassium 4.5 mEq/L (3.5-5.1)
[2021-05-20] MEDS ORDERED: Heparin 1,000 UNITS/500 mL 500 ML ONE (11:19)
[2021-05-20] MEDS ORDERED: *HR* FentaNYL (PF) 100 MCG/2 ML VIAL IVP ONE (11:21)
[2021-05-20] MEDS ORDERED: *HR* Midazolam HCl 2 MG/2 ML VIAL IVP ONE (11:21)
[2021-05-20] MEDS ORDERED: *HR* FentaNYL (PF) 100 MCG/2 ML VIAL ONE (11:25)
[2021-05-20] MEDS ORDERED: *HR* Midazolam HCl 2 MG/2 ML VIAL ONE (11:25)
[2021-05-20] MEDS ORDERED: *HR* Heparin 5,000 UNIT/ML VIAL ONE (11:25)
[2021-05-20] MEDS: Docusate Oral Soln 100 MG/10 ML UDC GTUBE SCH (11:28)
[2021-05-20] MEDS: Ascorbic Acid 500 MG TABLET GTUBE SCH (11:28)
[2021-05-20] MEDS: Zinc Sulfate 220 MG CAPSULE GTUBE SCH (11:28)
[2021-05-20] MEDS: *HR* Amiodarone 200 MG TABLET GTUBE SCH (11:28)
[2021-05-20] MEDS: Renal Vitamin 1 CAP CAPSULE PO SCH (11:28)
[2021-05-20] MEDS ORDERED: CeFAZolin 2,000MG/50ML DUPLEX 2,000 MG/50 ML BAG IVPB ONE (12:00)
[2021-05-20] MEDS: Chlorhexidine Rinse 15 ML MOUTHWASH MM SCH ×2 (15:22→20:18)
[2021-05-20] MEDS: Artificial Tears SOLN 15 ML BOTTLE BOTH EYES PRN (15:46)
[2021-05-20] MEDS: Apixaban 2.5 MG TABLET GTUBE SCH ×2 (20:18→22:28)
[2021-05-20] MEDS: Famotidine 20 MG TABLET GTUBE SCH ×2 (20:18→22:28)
[2021-05-20] MEDS: Mirtazapine 15 MG TABLET GTUBE SCH ×2 (20:18→22:28)
[2021-05-21] MEDS: Ipratropium/Albuterol Neb 3 ML IH SCH ×6 (03:50→23:47)
[2021-05-21 06:13] LABS: Hematocrit 27.5 % (35.3-44.9); Hemoglobin 8.8 g/dL (11.5-15.4); Mean Corpuscular Hemoglobin 29.3 pg (28.0-33.3); Mean Corpuscular Volume 91.7 fL (83.0-100.0); Mean Platelet Volume 10.2 fL (9.4-12.4); Platelet Count 227 K/mcL (140-400); Red Cell Distribution Width 19.8 % (11.5-14.5); White Blood Count 7.2 K/mcL (4.3-11.1)
[2021-05-21 06:30] LABS: Calcium 8.2 mg/dL (8.6-10.3); Potassium 4.8 mEq/L (3.5-5.1)
[2021-05-21] MEDS: *HR* Amiodarone 200 MG TABLET GTUBE SCH (08:18)
[2021-05-21] MEDS: Ascorbic Acid 500 MG TABLET GTUBE SCH (08:24)
[2021-05-21] MEDS: Docusate Oral Soln 100 MG/10 ML UDC GTUBE SCH (08:24)
[2021-05-21] MEDS: Renal Vitamin 1 CAP CAPSULE PO SCH (08:24)
[2021-05-21] MEDS: Chlorhexidine Rinse 15 ML MOUTHWASH MM SCH ×2 (08:24→20:31)
[2021-05-21] MEDS: Zinc Sulfate 220 MG CAPSULE GTUBE SCH (08:25)
[2021-05-21] MEDS ORDERED: *HR* Heparin 5,000 UNIT/ML VIAL IVP PRN ×2 (13:48)
[2021-05-21] MEDS ORDERED: GuaiFENesin Liq 200 MG/10 ML UDC PO PRN (14:58)
[2021-05-21] MEDS: Mirtazapine 15 MG TABLET PO SCH (20:31)
[2021-05-21] MEDS: Artificial Tears SOLN 15 ML BOTTLE BOTH EYES PRN (20:31)
[2021-05-21] MEDS: Famotidine 20 MG TABLET PO SCH (20:31)
[2021-05-22] MEDS: Heparin 25,000UNIT/250ML 1/2NS 25,000 UNIT/250 ML IV.SOLN IVC SCH (02:05)
[2021-05-22] MEDS: Ipratropium/Albuterol Neb 3 ML IH SCH ×6 (04:12→23:50)
[2021-05-22 06:16] LABS: Hematocrit 29.7 % (35.3-44.9); Hemoglobin 8.9 g/dL (11.5-15.4); Mean Corpuscular Hemoglobin 27.8 pg (28.0-33.3); Mean Corpuscular Volume 92.8 fL (83.0-100.0); Mean Platelet Volume 10.3 fL (9.4-12.4); Platelet Count 241 K/mcL (140-400); Red Cell Distribution Width 19.9 % (11.5-14.5); White Blood Count 6.3 K/mcL (4.3-11.1)
[2021-05-22 06:33] LABS: Calcium 8.5 mg/dL (8.6-10.3); Potassium 4.7 mEq/L (3.5-5.1)
[2021-05-22 06:36] LABS: Phosphorous 4.6 mg/dL (2.7-4.5)
[2021-05-22] MEDS: Renal Vitamin 1 CAP CAPSULE PO SCH (08:08)
[2021-05-22] MEDS: *HR* Amiodarone 200 MG TABLET PO SCH (08:08)
[2021-05-22] MEDS: Ascorbic Acid 500 MG TABLET PO SCH (08:09)
[2021-05-22] MEDS: Chlorhexidine Rinse 15 ML MOUTHWASH MM SCH ×2 (08:09→21:18)
[2021-05-22] MEDS: Zinc Sulfate 220 MG CAPSULE PO SCH (08:09)
[2021-05-22] MEDS ORDERED: Docusate Oral Soln 100 MG/10 ML UDC PO SCH (09:00)
[2021-05-22 16:40] LABS: Adenovirus Not Detected (Not Detect); Bordetella Pertussis Not Detected (Not Detect); Chlamydophila pneumoniae Not Detected (Not Detect); Coronavirus 229E Not Detected (Not Detect); Coronavirus HKU1 Not Detected (Not Detect); Coronavirus NL63 Not Detected (Not Detect); Coronavirus OC43 Not Detected (Not Detect); Human Metapneumovirus Not Detected (Not Detect); Human Rhinovirus/Enterovirus Not Detected (Not Detect); Influenza A Subtype 2009 H1 Not Detected (Not Detect); Influenza B Not Detected (Not Detect); Mycoplasma pneumoniae Not Detected (Not Detect); Parainfluenza Virus 1 Not Detected (Not Detect); Parainfluenza Virus 2 Not Detected (Not Detect); Parainfluenza Virus 3 Not Detected (Not Detect); Parainfluenza Virus 4 Not Detected (Not Detect); Respiratory Syncytial Virus Not Detected (Not Detect); SARS-CoV-2 Not Detected (Not Detect)
[2021-05-22] MEDS: Apixaban 2.5 MG TABLET GTUBE SCH (21:17)
[2021-05-22] MEDS: Mirtazapine 15 MG TABLET PO SCH (21:18)
[2021-05-22] MEDS: Artificial Tears SOLN 15 ML BOTTLE BOTH EYES PRN (21:18)
[2021-05-22] MEDS: Famotidine 20 MG TABLET PO SCH (21:18)
[2021-05-23] MEDS: Ipratropium/Albuterol Neb 3 ML IH SCH ×2 (04:10→07:21)
[2021-05-23 06:48] VITALS: BP 141/99
[2021-05-23 07:55] LABS: Calcium 8.4 mg/dL (8.6-10.3); Potassium 4.9 mEq/L (3.5-5.1)
[2021-05-23] MEDS: Ascorbic Acid 500 MG TABLET PO SCH (08:27)
[2021-05-23] MEDS: *HR* Amiodarone 200 MG TABLET PO SCH (08:27)
[2021-05-23] MEDS: Zinc Sulfate 220 MG CAPSULE PO SCH (08:27)
[2021-05-23] MEDS: Renal Vitamin 1 CAP CAPSULE PO SCH ×2 (08:28→08:58)
[2021-05-23] MEDS: Chlorhexidine Rinse 15 ML MOUTHWASH MM SCH (08:28)
[2021-05-23] MEDS ORDERED: Apixaban 2.5 MG TABLET PO SCH (09:00)
[2021-05-24 12:21] LABS: Total Volume 24 Hour,Urine 1.2 Liters (0.60-1.60)
== END 2021-05-23 10:02 | DRG 280 ==
LOC: SUATTDRO 11:35 → ICNU 11:35 → 2NNU 05-16 16:03
PROVIDERS: ADMIT Pediatrics; ATTEND Family Medicine
PROC: ENDOCBX (2021-05-15 13:00)
PROC: IRPERMA (2021-05-20 12:00)